=== PATIENT | female | born 2000 | race Caucasian/White ===

== ENCOUNTER → 2019-10-31 10:54 | Outpatient (BNVA) | payer MEDICAID, SELFPAY | PROVIDERS: Family Provider Family Medicine; PCP Family Medicine; Visit Provider Obstetrics & Gynecology | DX: Z01.89 Encounter for other specified special examinations (principal) ==

== ENCOUNTER → 2019-11-02 14:27 | Outpatient (BNVA) | payer MEDICAID, SELFPAY | PROVIDERS: Family Provider Family Medicine; PCP Family Medicine; Visit Provider Obstetrics & Gynecology | DX: Z30.017 Encounter for initial prescription of implantable subdermal contraceptive (principal) | CPT/HCPCS: 81025 ==

== ENCOUNTER 2019-12-08 12:59 | Outpatient (CLI) | payer MEDICAID, SELFPAY ==
--- NOTE | 2019-12-08 13:02 | US_ITS ---
WS: [id number] ULTRASOUND RIGHT BREAST HISTORY: FIBROADENOMA OF RIGHT BREAST COMPARISON: 03/10/2019 and 02/22/2019 TECHNIQUE: 2-D and Doppler. There is a very large well-circumscribed mass of mixed echogenicity in the RIGHT breast at 4:00. No i ncrease in size since the prior study. Mass measures 2.3 x 2.2 x 2.2 cm. Prior biopsy demonstrated fi broadenoma. US/US breast BI limited* [id number] IMPRESSION: BI-RADS: 2-Benign FOLLOW-UP: See Report 1. RIGHT breast mass noted to be a fibroadenoma on a prior biopsy. 2. Consider surgical removal due to large size.
== END 2019-12-08 13:00 | disposition home or self-care (01) ==
LOC: RAD 13:01
PROVIDERS: Family Provider Family Medicine; PCP Family Medicine; Visit Provider Surgery
DX: Z01.89 Encounter for other specified special examinations (principal)
CPT/HCPCS: 76642

== ENCOUNTER 2020-01-08 20:53 | Emergency (ER) | payer OTHER, SELFPAY ==
[2020-01-08 21:06] VITALS: BP 109/67; PULSE 66; RESP 16; TEMP 36.7; O2SAT 99; BMI 20.3
--- NOTE | 2020-01-08 21:10 | XR_ITS ---
WS: [id number] LEFT HAND: 3 VIEW(S) TECHNIQUE: PA, oblique and lateral. HISTORY: trauma; pinky finger COMPARISON: None available. No acute fracture or dislocation. No soft tissue or bone abnormality. XR/XR hand LT min 3V* [id number] IMPRESSION: Normal LEFT hand.
--- NOTE | 2020-01-08 21:11 | W.ED.UPPEXIN ---
HPI - Extremity Injury (Upper) General: Chief Complaint: Extremity Injury, Upper Stated Complaint: Left finger pain Time Seen by Provider: 01/08/20 21:04 History of Present Illness: HPI narrative: Patient got left pinky finger caught between 2 cases of cans a day and it hurt. Contacted work comp when he had a number for company and they told her to follow-up here. complaint: injury to: left and finger Onset (ago): hour(s) Other Extremity Injury: Left: fingers (Pinky) Other injuries: none Handedness: right Place: work Severity: mild Severity scale (1-10): 1 Relieving factors: immobilization Exacerbating factors: movement of extremity Context: direct blow Associated symptoms: Reports no associated symptoms Review of Systems Const: Denies: fever, chills or body aches Eyes: Denies: change in vision or blurry vision ENMT: Denies: throat pain or nasal congestion Card: Denies: chest pain or shortness of breath on exertion Resp: Denies: shortness of breath, productive cough or non-productive cough GI: Denies: abdominal pain, nausea or vomiting Musc: Reports: extremity pain (End of left pinky finger caught between 2 cases a chance today) Skin/Breast: Denies: rash Neuro: Denies: headache Psych: Denies: anxiety or depression Eduardo/Lymph: Denies: easy bruising PFS ED PFSH: Medical History (Updated 11/08/19 @ 13:20 by Josh Garber MD) Fibroadenoma of right breast 4 cm mobile mass at 4:00 position of right breast at edge of areola. Bx performed - fibroadenoma. depression On 10/10/2019, reported worsening depression symptoms in timeframe. Started on fluoxetine 20 mg daily Surgical History (Updated 11/08/19 @ 13:15 by Josh Garber MD) History of dental surgery (~2014) Social History (Updated 11/08/19 @ 13:17 by Josh Garber MD) Smoking and tobacco status: never smoked Quit status (tobacco): has quit using tobacco Year quit tobacco: 04/2018 Alcohol intake: never Adopted: Yes Physical Exam Const: COMMON NORMALS: no apparent distress Extremity: LEFT UPPER EXTREMITY: Yes hand & digits (Redness with mild swelling to the left pinky finger D distal aspect of the phalanx has good range of motion good neurovascular status) Psych: COMMON NORMALS: mental status grossly normal Discharge Plan Discharge Prescriptions: No Action lidocaine-epinephrine (PF) 2 %-1:200,000 solution 3 ml Infiltration ONCE Qty: 1 RF: 0 povidone-iodine [Betadine Swabsticks] 10 % swab 1 applic topical ONCE Qty: 1 RF: 0 fluoxetine 20 mg capsule 20 mg PO QDAY Qty: 30 RF: 12 Coding Level of Care Code ED Embroidery Cutter for Nicole Kelly
[2020-01-08 21:25] VITALS: PULSE 67
[2020-01-08 21:51] VITALS: BP 121/66; PULSE 66; RESP 18; O2SAT 99
== END 2020-01-08 21:52 | disposition home or self-care (01) ==
LOC: ER 01-09 02:13
PROVIDERS: Emergency Provider Nurse Practitioner Family; Family Provider Family Medicine; PCP Family Medicine
DX: M79.645 Pain in left finger(s) (principal)
CPT/HCPCS: 12345; 73130; 99281; 99282

== ENCOUNTER 2021-02-25 22:24 | Emergency (ER) | payer MEDICAID, SELFPAY ==
[2021-02-25 22:28] VITALS: BP 116/70; PULSE 106; RESP 18; TEMP 36.6; O2SAT 99; BMI 19.1
--- NOTE | 2021-02-25 22:39 | W.ED.NAVMDI ---
HPI - Nausea/Vomiting/Diarrhea General: Chief complaint: Nausea/Vomiting/Diarrhea Stated complaint: N/V/D X 2 DAYS, FEVER Time Seen by Provider: 02/25/21 22:26 History of Present Illness: HPI Narrative: Patient is a 20-year-old female comes to the ED with nausea/vomiting and fever. Patient says symptoms started proximately 4 days ago on . She says she has vomited 3 times since start of symptoms. She has some generalized abdominal tenderness that started after vomiting. She has felt nauseous but has only been able to keep down some chicken noodle soup. She reports feeling weak as well having body aches. Denies any cough, sore throat, shortness of breath, diarrhea, constipation, dysuria or hematuria. Associated nausea: Yes Associated symtoms: Reports nausea; Denies change in vision, chest pain, dysuria, fatigue, headache(s) or palpitations Review of Systems Const: Reports: fever(s) and body aches; Denies: chills or fatigue Eyes: Denies: change in vision or eye discomfort ENMT: Denies: throat pain, odynophagia, nasal discharge or nasal congestion Card: Denies: chest pain, palpitations, edema, swelling of feet/ankles, dyspnea on exertion or orthopnea Resp: Denies: dyspnea, productive cough or non-productive cough GI: Reports: nausea and vomiting; Denies: abdominal pain, diarrhea, constipation or hematochezia : Reports: flank pain; Denies: dysuria or hematuria Musc: Denies: neck pain, back pain or extremity swelling Skin/Breast: Denies: rash or new lesions Neuro: Denies: headache(s), numbness in extremities or weakness in extremities PFSH ED PFSH: Medical History Fibroadenoma of right breast 4 cm mobile mass at 4:00 position of right breast at edge of areola. Bx performed - fibroadenoma. depression On 10/10/2019, reported worsening depression symptoms in timeframe. Started on fluoxetine 20 mg daily Surgical History History of dental surgery (~2014) Family History Other Adopted Social History Smoking and tobacco status: never smoked Quit status (tobacco): has quit using tobacco Year quit tobacco: 04/2018 Alcohol intake: never Adopted: Yes Physical Exam Narrative: EXAM NARRATIVE: Patient is a 20-year-old female who appears nontoxic and in no acute distress upon exam. Const: COMMON NORMALS: no acute distress, patient oriented x3 and alert GENERAL APPEARANCE: cooperative and comfortable HENMT: COMMON NORMALS: normocephalic HEAD & SCALP: normocephalic MOUTH: Normal oral and palatal mucosa present THROAT: posterior oropharynx normal and uvula midline Neck/C-Spine: COMMON NORMALS: supple GENERAL: Yes normal visual inspection Resp: COMMON NORMALS: normal respiratory effort, No retractions, No use of accessory muscles and clear to auscultation bilaterally AUSCULTATION: clear to auscultation bilaterally Cardio: COMMON NORMALS: regular rate, regular rhythm, S1 normal heart sound present, S2 normal heart sound present, No gallops present (Cardio), No clicks present (Cardio), No murmurs present (Cardio) and Peripheral pulses 2+ throughout RATE: regular rate RHYTHM: regular rhythm HEART SOUNDS: S1 normal heart sound present and S2 normal heart sound present PERIPHERAL PULSES: Peripheral pulses 2+ throughout GI: COMMON NORMALS: Normal to inspection, nondistended, normoactive bowel sounds present, Soft to palpation, non-tender and no masses PALPATION: Yes Soft to palpation : BLADDER/KIDNEY EXAM: Yes CVA tenderness on the left Back/Pelvis: GENERAL BACK: Yes CVA tenderness Extremity: COMMON NORMALS: normal to inspection Neuro: COMMON NORMALS: patient oriented x3 and moves all extremities SENSORIUM/ORIENTATION: Yes alert Skin: GENERAL SKIN EXAM: dry skin Course Vital Signs: Vital signs: Vital Signs Temperature 97.9 F 02/25/21 23:33 Pulse Rate 74 02/26/21 00:19 Respiratory Rate 16 02/26/21 00:19 Blood Pressure 104/60 02/26/21 00:19 Pulse Oximetry 97 02/26/21 00:19 MDM - Nausea/Vomiting/Diarrhea MDM Narrative: Medical decision making narrative: Patient is a 20-year-old female comes to the ED with nausea, vomiting, fever. Symptoms started about 4 days ago. Upon exam patient appears nontoxic and is in no acute distress or pain. She does have some CVA tenderness on the left side but no other significant exam findings. CBC and CMP were unremarkable. hCG negative. UA showed signs of UTI. UA findings and exam findings suggestive of pyelonephritis. Patient was given IV fluids, Zofran and Rocephin while here in the ED. Patient was discharged home and diagnosed with pyelonephritis. She was sent home with a prescription for ciprofloxacin and Zofran for nausea. Return to ED precautions given. Follow-up with PCP in 7 to 10 days for reevaluation. Patient understood and agreed with plan. Lab Data: Attestation: I reviewed the patient's lab results. Labs: Lab Results 02/25/21 02/25/21 02/25/21 Range/Units 22:40 22:40 22:40 WBC 8.8 (4.0-10.0) 10^3/ uL RBC 4.30 (4.1-5.3) 10^6/u L Hgb 13.0 (11.5-15.3) g/dL Hct 38.9 (37.0-47.0) % MCV 90.5 (81-99) fL MCH 30.2 (28.0-34.0) pg MCHC 33.4 (30.0-36.0) g/dL RDW 11.9 L (12.1-15.1) % Plt Count 181 (130-400) 10^3/c mm MPV 9.9 (7.4-10.4) fL Neut % (Auto) 89.8 % Lymph % (Auto) 5.0 % Hidalgo % (Auto) 4.7 % Eos % (Auto) 0.0 % Baso % (Auto) 0.3 % Neut # (Auto) 7.86 H (1.8-7.7) 10^3/u L Lymph # (Auto) 0.4 L (0.8-4.8) 10^3/u L Hidalgo # (Auto) 0.4 (0.2-0.9) 10^3/u L Eos # (Auto) 0.0 (0.0-0.8) 10^3/u L Baso # (Auto) 0.0 (0.0-0.1) 10^3/u L Nucleated RBC % (a uto) 0 % Nucleated RBCs # 0.0 /100WBC Sodium 137 (136-145) mmol/L Potassium 3.6 (3.5-5.1) mmol/L Chloride 102 (98-107) mmol/L Carbon Dioxide 23 (22-29) mmol/L Anion Gap 15.6 (5-19) BUN 9 (6-20) mg/dL Creatinine 0.4 L (0.5-0.9) mg/dL GFR Calculation 199.6 H (90-130) mL/min Glucose 116 H (65-115) mg/dL Calculated Osmolal ity 284 L (285-295) mOsm/k g Calcium 8.3 L (8.5-10.5) mg/dL Total Bilirubin 0.7 (0.15-1.2) mg/dL AST 15 (0-32) U/L ALT 14 (0-33) U/L Alkaline Phosphata se 59 (35-105) IU/L Total Protein 7.2 (6.6-8.7) g/dL Albumin 4.4 (3.5-5.2) g/dL Globulin 2.8 (1.3-4.6) g/dL Lipase 14 (13-60) U/L HCG, Qual Negative (Negative) Urine Color (Yellow) Urine Appearance (CLEAR) Urine pH (5-7) Ur Specific Gravit y (1.005-1.030) Urine Protein (Negative) Urine Glucose (UA) (Normal) Urine Ketones (Negative) Urine Blood (Negative) Urine Nitrate (Negative) Urine Bilirubin (Negative) Urine Urobilinogen (Negative) mg/dL Ur Leukocyte Erin ase (Negative) Urine RBC (0-2) /hpf Urine WBC (0-5) /hpf Ur Squamous Epith Cells (0-5) /hpf Amorphous Sediment Urine Bacteria (NONE) /hpf Urine Mucus /hpf // Range/Units Unknown WBC (4.0-10.0) 10^3/ uL RBC (4.1-5.3) 10^6/u L Hgb (11.5-15.3) g/dL Hct (37.0-47.0) % MCV (81-99) fL MCH (28.0-34.0) pg MCHC (30.0-36.0) g/dL RDW (12.1-15.1) % Plt Count (130-400) 10^3/c mm MPV (7.4-10.4) fL Neut % (Auto) % Lymph % (Auto) % Hidalgo % (Auto) % Eos % (Auto) % Baso % (Auto) % Neut # (Auto) (1.8-7.7) 10^3/u L Lymph # (Auto) (0.8-4.8) 10^3/u L Hidalgo # (Auto) (0.2-0.9) 10^3/u L Eos # (Auto) (0.0-0.8) 10^3/u L Baso # (Auto) (0.0-0.1) 10^3/u L Nucleated RBC % (a uto) % Nucleated RBCs # /100WBC Sodium (136-145) mmol/L Potassium (3.5-5.1) mmol/L Chloride (98-107) mmol/L Carbon Dioxide (22-29) mmol/L Anion Gap (5-19) BUN (6-20) mg/dL Creatinine (0.5-0.9) mg/dL GFR Calculation (90-130) mL/min Glucose (65-115) mg/dL Calculated Osmolal ity (285-295) mOsm/k g Calcium (8.5-10.5) mg/dL Total Bilirubin (0.15-1.2) mg/dL AST (0-32) U/L ALT (0-33) U/L Alkaline Phosphata se (35-105) IU/L Total Protein (6.6-8.7) g/dL Albumin (3.5-5.2) g/dL Globulin (1.3-4.6) g/dL Lipase (13-60) U/L HCG, Qual (Negative) Urine Color Yellow (Yellow) Urine Appearance Cloudy (CLEAR) Urine pH 6.5 (5-7) Ur Specific Gravit y 1.020 (1.005-1.030) Urine Protein Trace (Negative) Urine Glucose (UA) Norm (Normal) Urine Ketones 2+ H (Negative) Urine Blood 3+ H (Negative) Urine Nitrate Positive H (Negative) Urine Bilirubin 1+ H (Negative) Urine Urobilinogen 1 H (Negative) mg/dL Ur Leukocyte Erin ase 2+ H (Negative) Urine RBC 10-15 H (0-2) /hpf Urine WBC 25-40 H (0-5) /hpf Ur Squamous Epith Cells 25-40 H (0-5) /hpf Amorphous Sediment Not Reportable Urine Bacteria 2+ H (NONE) /hpf Urine Mucus 2+ /hpf Discharge Plan Discharge Patient Disposition: Home Clinical Impression: Pyelonephritis Condition: Stable Prescriptions: New ciprofloxacin HCl 500 mg tablet 500 mg PO BID 7 Days Qty: 14 RF: 0 Zofran 4 mg tablet 4 mg PO Q8H PRN (Reason: nausea and vomiting) Qty: 12 RF: 0 No Action lidocaine-epinephrine (PF) 2 %-1:200,000 solution 3 ml Infiltration ONCE Qty: 1 RF: 0 povidone-iodine [Betadine Swabsticks] 10 % swab 1 applic topical ONCE Qty: 1 RF: 0 fluoxetine 20 mg capsule 20 mg PO QDAY Qty: 30 RF: 12 methylprednisolone [Medrol (Diego)] 4 mg tablets,dose pack See Rx Instructions PO PER PKG DIR Qty: 21 RF: 0 Discharge Orders: Discharge ED (Routine); Ordered 02/26/21 Ordered By: Favio Sullivan Referrals: Gladys Talbot MD [Primary Care Provider] - Discharge Diet: Regular Discharge Activity: Increase activity as tolerated Patient Instructions: Pyelonephritis Activity Restrictions/Additional Instructions: Follow-up with medical provider as directed in 7 to 10 days for reevaluation. Take medications as prescribed. Drink plenty of fluids and stay hydrated. Return to the ER or your medical provider if condition worsens. Please read and understand discharge instructions. Thank you for choosing [facility] for your healthcare needs today. Please realize this is an emergency room and that we are providing you with a medical screening exam and this may not be complete and all inclusive of all the testing and or work up that you may need to determine your ailment or severity of your illness. It is very important that you follow up as instructed or that you return to the Emergency Department should you have concerns or if your condition changes or worsens in any way. Coding Level of Care Code ED Photocomposition Keyboard Operator for Nicole Kelly Exam Comprehensive
[2021-02-25] MEDS: ondansetron 2 mg/ML SDV 2 mL 4 MG IVP (22:44)
[2021-02-25 22:46] LABS: Basophils % 0.3 %; Hematocrit 38.9 % (37.0-47.0); Lymphocytes # 0.4 10^3/uL (0.8-4.8); Mean Corpuscular HGB Conc 33.4 g/dL (30.0-36.0); Mean Corpuscular Hemoglobin 30.2 pg (28.0-34.0); Mean Corpuscular Volume 90.5 fL (81-99); Mean Platelet Volume 9.9 fL (7.4-10.4); Monocytes # 0.4 10^3/uL (0.2-0.9); Monocytes % 4.7 %; Neutrophils # 7.86 10^3/uL (1.8-7.7); Neutrophils % 89.8 %; Nucleated Red Blood Cells % 0 %; Platelet Count 181 10^3/cmm (130-400); Red Cell Distribution Width 11.9 % (12.1-15.1); White Blood Count 8.8 10^3/uL (4.0-10.0)
[2021-02-25] MEDS: sodium chloride 0.9% 1,000 ML 999 ML IV (22:51)
[2021-02-25 22:56] LABS: HCG, Serum Qual Negative (Negative)
[2021-02-25 23:04] LABS: Alanine Aminotransferase 14 U/L (0-33); Albumin Level 4.4 g/dL (3.5-5.2); Alkaline Phosphatase 59 IU/L (35-105); Anion Gap 15.6 (5-19); Aspartate Amino Transferase 15 U/L (0-32); Blood Urea Nitrogen 9 mg/dL (6-20); Calcium 8.3 mg/dL (8.5-10.5); Carbon Dioxide 23 mmol/L (22-29); Chloride 102 mmol/L (98-107); Globulin 2.8 g/dL (1.3-4.6); Glomerular Filtration Rate 199.6 mL/min (90-130); Glucose 116 mg/dL (65-115); Lipase 14 U/L (13-60); Osmolality Calculated 284 mOsm/kg (285-295); Potassium 3.6 mmol/L (3.5-5.1); Sodium 137 mmol/L (136-145); Total Bilirubin 0.7 mg/dL (0.15-1.2); Total Protein 7.2 g/dL (6.6-8.7)
[2021-02-25 23:08] LABS: Protein Urine Trace (Negative); Urine Appearance Cloudy (CLEAR); Urine Color Yellow (Yellow); pH Urine 6.5 (5-7)
[2021-02-25 23:09] LABS: Bacteria Urine 2+ /hpf; Bilirubin Urine 1+ (Negative); Blood Urine 3+ (Negative); Glucose Urine UA Norm (Normal); Ketones Urine 2+ (Negative); Leukocyte Esterase Urine 2+ (Negative); Nitrate Urine Positive (Negative); Squamous Epithelial Cell Urine 25-40 /hpf (0-5); Urobilinogen Urine 1 mg/dL (Negative); WBC Urine 25-40 /hpf (0-5)
[2021-02-25 23:10] LABS: Add Urine Culture? No; Mucus Urine 2+ /hpf
[2021-02-25 23:33] VITALS: BP 96/73; RESP 18; TEMP 36.6; O2SAT 99
[2021-02-25] MEDS: cefTRIAXone 1,000 MG in sodium chloride 0.9% (plus) 50 ML 100 MG IV (23:33)
[2021-02-26 00:19] VITALS: BP 104/60; PULSE 74; RESP 16; O2SAT 97
== END 2021-02-26 00:21 | disposition home or self-care (01) ==
PROVIDERS: Emergency Provider Physician Assistant; PCP Family Medicine
DX: N12 Tubulo-interstitial nephritis, not specified as acute or chronic (principal); Z87.891 Personal history of nicotine dependence
CPT/HCPCS: 80053; 81001; 83690; 84703; 85025; 96365; 96375; 99283; J0696; J2405; J7030

== ENCOUNTER → 2021-03-21 15:33 | Outpatient (BNVA) | payer MEDICAID, SELFPAY | PROVIDERS: PCP Family Medicine; Visit Provider Surgery | DX: N63.0 Unspecified lump in unspecified breast (principal); Z20.822 Contact with and (suspected) exposure to COVID-19 | CPT/HCPCS: 87635 ==

== ENCOUNTER 2021-03-26 05:46 | Day surgery (SDC) | payer MEDICAID, SELFPAY ==
[2021-03-25 13:34] VITALS: BMI 19.1
[2021-03-26 06:13] VITALS: BP 133/69; PULSE 62; RESP 18; TEMP 37.2; O2SAT 100
--- NOTE | 2021-03-26 06:28 | W.PM.OPSUD ---
Surgery/Procedure H&P Update DATE OF PROCEDURE: March 26, 2021 DATE H&P PERFORMED: 03/14/21 H&P UPDATE INFORMATION: I have reviewed H&P completed within last 30 days, I have examined patient prior to procedure and No changes to prior documentation PREOP DIAGNOSIS: Right breast lump PRIMARY INDICATION FOR PROCEDURE: The same PLANNED PROCEDURE: Operation Date: 03/26/21 07:00 Proposed Procedures p Excsion of right breast mass 42607 N63.0(Right) - Elliott Fishman MD
[2021-03-26] MEDS: sodium chloride 0.9% 1,000 ML 30 ML IV (06:35)
[2021-03-26] MEDS: acetaminophen 1,000 MG/100 ML PIGGYBACK 400 MG IV (06:35)
[2021-03-26 06:56] LABS: OR HCG Qualitative Urine Negative (Negative)
--- NOTE | 2021-03-26 07:03 | P.ANESASSM_ITS ---
Pre-Anesthetic Assessment Pre-Anesthetic Assessment: Height/Weight: Height 1.6 m Weight 48.988 kg Temp Pulse Resp BP Pulse Ox 98.9 F 62 18 133/69 100 03/26/21 06:13 03/26/21 06:13 03/26/21 06:13 03/26/21 06:13 03/26/21 06:13 Preop Diagnosis: Right breast lump Proposed Procedure: Operation Date: 03/26/21 07:00 Proposed Procedures p Excsion of right breast mass 89361 N63.0(Right) - Elliott Fishman MD Was Beta Robert taken within 24 hours: N/A Was Clonidine taken within 24 hours: N/A Last intake: Intake Last Liquid Date 03/25/21 Last Liquid Time 22:00 Last Solid Date 03/25/21 Last Solid Time 18:00 Social: Social History: Tobacco (Vapes) and No alcohol Exam: Pre-Anes Outpt Exam: alert, oriented x 3, clear to auscultation bilate rally and regular rate & rhythm Airway: Submandibular: WNL Cervical ROM: WNL MP: 2 Dentition: Full History/ROS: No significant history except as noted Anesthetic Plan: ASA status: 2 Anesthesia: Choice Risk of > 500 ml blood loss (7ml/kg in children): No Meds/Allergies Current Medications: Current Medications Generic Name Dose Route Start Last Admin Trade Name Freq PRN Reason Stop Dose Admin Sodium Chloride 1,000 mls @ 30 ml s/hr 03/26/21 06:15 03/26/21 06:35 Sodium Chloride 0.9% IV 03/27/21 06:14 30 mls/hr .Q24H LEDA Administration PFSH Anesthesia PFSH: Medical History Fibroadenoma of right breast 4 cm mobile mass at 4:00 position of right breast at edge of areola. Bx performed - fibroadenoma. depression On 10/10/2019, reported worsening depression symptoms in timeframe. Started on fluoxetine 20 mg daily Surgical History History of dental surgery (~2014) Family History Other Adopted Social History Smoking and tobacco status: never smoked Quit status (tobacco): has quit using tobacco Year quit tobacco: 04/2018 Alcohol intake: never Adopted: Yes Lives independently: Yes Household members: children and other Data Anesthesia Other Labs: Laboratory Results - last 48 hr 03/26/21 06:55 Urine HCG, Qual Negative Cardiac Studies: No Data to Display
[2021-03-26] MEDS: lidocaine 2% INJ 20 mL (07:23)
--- NOTE | 2021-03-26 07:56 | PM.OP ---
Operative Report Date of procedure: March 26, 2021 Pre-op Diagnosis: Right breast lump Post-op diagnosis: same Post-op Diagnosis: The same 3 x 4 cm right breast mass likely fibroadenoma Procedure Done: Excision of right breast mass Specimens removed/disposition: Right breast mass 3 x 4 cm with short sutures marked superior and long sutures marked lateral Surgeon: Elliott Fishman Anesthesia: General (LMA operator supply Toni) Estimated blood loss (mL): 10 Condition: stable Disposition: same day Brief History: Symptomatic right breast mass. Full H&P and informed consent per chart. Procedure: After identifying the patient holding area, the right breast was marked before the procedure by myself the presence of female nursing staff rosemary Valenzuela, patient was then taken to the operative suite, was placed in supine position, intubated by anesthesia, prophylactic IV antibiotics were given per protocol, right arm was tucked to her body, prep and drape of the right pectoralis region was done under the usual sterile technique. Timeout was done verifying the patient's name/date of /planned procedure and destination after the procedure, all were in agreement. After palpation of the breast lump,Lidocaine 2% was injected at the site of the incision I did add circumferential incision on top of the mass coinciding with nipple areolar complex interface with the skin between 3 and 6:00 o'clock. I was able to dissect using the Bovie cautery at good margin of normal breast tissue surrounding the mass, and appropriate orientation was done for the breast mass in the form of, short superior sutures, long lateral sutures, and the specimen was taken out and passed to the circulating nurse for permanent pathology. Thorough irrigation of the cavity was done and hemostasis, followed by deep dermal closure by 2-0 Vicryl then 4-0 Vicryl, then 4-0 Monocryl for skin closure, followed by Mastisol and Steri-Strips.Followed by pressure dressing fluffs and sports bra. Patient tolerated the procedure well, count of instruments, needles and sponges were completed at the end of the procedure.And then patient was taken to the recovery area in stable condition after extubation. I Was present for the whole entire procedure
[2021-03-26 08:12] VITALS: BP 116/77; PULSE 106; RESP 17; TEMP 36.5; O2SAT 100
[2021-03-26 08:16] VITALS: BP 124/74; PULSE 112; RESP 19; O2SAT 100
[2021-03-26 08:20] VITALS: BP 124/73; PULSE 107; RESP 18; TEMP 36.5; O2SAT 100
[2021-03-26 08:22] VITALS: BP 121/91; PULSE 107; RESP 19; TEMP 36.5; O2SAT 100
[2021-03-26] MEDS: HYDROcodone-acetaminophen 5-325 mg Tablet 1 TAB PO (09:00)
--- NOTE | 2021-03-26 11:36 | ANE.PACU2 ---
Inpatient post-anesthesia follow up: Airway intact: Yes Vital signs: Temperature 97.7 F Pulse Rate 107 Respiratory Rate 19 Blood Pressure 121/91 Pulse Oximetry 100 Oxygen Delivery Me thod Room Air Oxygen Flow Rate Fraction of Inspir ed Oxygen Hydration adequate: Yes Nausea and vomiting: No Pain level: 1 Mental status: Baseline
== END 2021-03-26 09:26 | disposition home or self-care (01) ==
PROVIDERS: PCP Family Medicine; Visit Provider Surgery
PROC: (CPT 19120; principal; 2021-03-26 07:00)
DX: N63.10 Unspecified lump in the right breast, unspecified quadrant (principal); F17.290 Nicotine dependence, other tobacco product, uncomplicated
CPT/HCPCS: 19120; 81025; 84703; 88305; 96365; J0690; J1100; J1885; J2405; J2704; J3010; J3490; J7030

== ENCOUNTER 2021-07-05 11:36 | Day surgery (SDC) | payer MEDICAID, SELFPAY ==
[2021-07-05] VITALS (9 sets, daily range): BP systolic 104–123; BP diastolic 44–69; PULSE 88–126; RESP 15–20; TEMP 36.4–38.5; O2SAT 98–100; BMI 19.3
--- NOTE | 2021-07-05 12:14 | CTR_ITS ---
PROCEDURE INFORMATION: Exam: CT Abdomen And Pelvis With Contrast Exam date and time: 07/05/2021 12:14 PM Age: 21 years old Clinical indication: Abdominal pain/lower abdominal cramping with nausea and vomiting. TECHNIQUE: Imaging protocol: Computed tomography of the abdomen and pelvis with contrast. Radiation optimization: All CT scans at this facility use at least one of these dose optimization techniques: automated exposure control; mA and/or kV adjustment per patient size (includes targeted exams where dose is matched to clinical indication); or iterative reconstruction. Contrast material: OMNI 300; Contrast volume: 75 ml; Contrast route: INTRAVENOUS (IV); COMPARISON: US BPP w/o NST [id number] 08/24/2019 1:36 PM RADIATION DOSE METRICS: Total DLP (mGy-cm): 781.78 FINDINGS: Lungs: The lung bases are unremarkable. No pericardial effusion. No hiatal hernia. Liver: The liver is unremarkable. Gallbladder and bile ducts: The gallbladder is unremarkable. Pancreas: The pancreas is unremarkable. Spleen: The spleen is unremarkable. Adrenal glands: The adrenal glands are unremarkable. Kidneys and ureters: The kidneys are unremarkable. Stomach and bowel: The stomach and small bowel are unremarkable.. The colon is unremarkable. Appendix: The appendix is thickened measuring up to 1.3 cm. There is periappendiceal edema compatible with acute appendicitis. There is no evidence of perforation or abscess formation. Intraperitoneal space: No free intraperitoneal air. Vasculature: No abdominal aortic aneurysm. Lymph nodes: No retroperitoneal lymphadenopathy. Urinary bladder: The bladder is partially decompressed. Reproductive: Probable tampon in the vaginal canal. Small cysts or follicles in the ovaries. Bones/joints: No acute fracture is seen. CT/CT abdomen pelvis w con* [id number] IMPRESSION: Findings compatible with acute, uncomplicated appendicitis. No perforation. No abscess. Radiation Dose CTDIVOL = (mGy): DLP = 781.78 (mGy-cm)
--- NOTE | 2021-07-05 12:17 | W.ED.ABDPA2 ---
HPI - Abdominal Pain General: Chief Complaint: Abdominal Pain Stated Complaint: Vomiting Time Seen by Provider: 07/05/21 12:10 History of Present Illness: HPI narrative: 21-year-old female presents emergency room with right lower quadrant pain that began yesterday last time she ate was 18 hours ago. She has had bilious vomiting with a low-grade fever. She has mild dysuria as she does not believe that she is . She had a little bit of hemoptysis at home small bits of blood no large amounts. She has not had any bloody stools. No history of nephrolithiasis. MD elicited complaint: abdominal pain Onset (ago): hour(s) Pain Consistency: constant Location: RLQ Severity: severe Quality: cramping Exacerbating factors: eating and movement Relieving factors: nothing Associated Symptoms: Reports fever(s) and poor appetite; Denies anorexia, belching, bloating, change in bowel habits, change in stool character, chills, coffee ground emesis, constipation, GI cramping, diarrhea, dyspepsia, dysuria, excessive flatus, heartburn, hematochezia, hematuria, hematemesis, fecal incontinence, loose stools, melena, nausea, syncope and vomiting Related Data: Date of Last Menstrual Period: 07/01/21 Review of Systems Const: Reports: fever(s); Denies: chills ENMT: Denies: throat pain, ear or mastoid pain, nasal discharge or nasal congestion Card: Denies: syncope Resp: Denies: dyspnea, productive cough or non-productive cough GI: Denies: nausea, vomiting, hematemesis, coffee ground emesis, heartburn, diarrhea, constipation, bloating, GI cramping, belching, excessive flatus, fecal incontinence, change in bowel habits, change in stool character, hematochezia or melena : Denies: dysuria or hematuria Skin/Breast: Denies: rash or pruritus PFSH ED PFSH: Medical History Breast mass, right Fibroadenoma of right breast 4 cm mobile mass at 4:00 position of right breast at edge of areola. Bx performed - fibroadenoma. depression On 10/10/2019, reported worsening depression symptoms in timeframe. Started on fluoxetine 20 mg daily Surgical History History of dental surgery (~2014) Family History Other Adopted Social History Quit status (tobacco): has quit using tobacco Year quit tobacco: 04/2018 Alcohol intake: never Adopted: Yes Lives independently: Yes Household members: children and other Female Reproductive History: Date of last menstrual period: 07/01/21 Physical Exam Const: COMMON NORMALS: no acute distress GENERAL APPEARANCE: cooperative and comfortable ORIENTATION/CONSCIOUSNESS: Yes awake, Yes oriented to person, Yes oriented to place and Yes oriented to time HENMT: COMMON NORMALS: normocephalic, atraumatic and hearing grossly normal bilaterally HEAD & SCALP: normocephalic and atraumatic Neck/C-Spine: COMMON NORMALS: no JVD Resp: COMMON NORMALS: normal respiratory effort, No retractions, No use of accessory muscles and clear to auscultation bilaterally AUSCULTATION: clear to auscultation bilaterally Cardio: COMMON NORMALS: no JVD, regular rate, regular rhythm and No murmurs present (Cardio) RATE: regular rate RHYTHM: regular rhythm GI: PALPATION: Yes Tenderness to palpation present (GI) Details: RLQ and Yes Guarding due to palpation present (GI) in the RLQ Extremity: COMMON NORMALS: normal to inspection, capillary refill normal, no clubbing, cyanosis or edema, no calf tenderness and no pedal edema Neuro: SENSORIUM/ORIENTATION: Yes oriented to person, Yes oriented to place and Yes oriented to time Skin: COMMON NORMALS: no rashes or lesions noted GENERAL SKIN EXAM: no rashes or lesions noted Course Vital Signs: Vital signs: Vital Signs Temperature 98.2 F 07/05/21 11:53 Pulse Rate 88 07/05/21 13:02 Respiratory Rate 15 07/05/21 14:37 Blood Pressure 114/69 07/05/21 13:02 Pulse Oximetry 100 07/05/21 13:02 MDM - Abdominal Pain Lab Data: Labs: Lab Results 07/05/21 07/05/21 07/05/21 12:57 12:57 12:57 WBC 17.8 10^3/uL H 10 ^3/uL (4.0-10.0) RBC 4.94 10^6/uL 10^6 /uL (4.1-5.3) Hgb 14.6 g/dL g/dL (11.5-15.3) Hct 44.4 % % (37.0-47.0) MCV 89.9 fl fl (81-99) MCH 29.6 pg pg (28.0-34.0) MCHC 32.9 g/dL g/dL (30.0-36.0) RDW 12.2 % % (12.1-15.1) Plt Count 258 10^3/cmm 10^3 /cmm (130-400) MPV 10.3 fL fL (7.4-10.4) Neut % (Auto) 87.6 % % Lymph % (Auto) 6.6 % % [place] % (Auto) 4.8 % % Eos % (Auto) 0.1 % % Baso % (Auto) 0.3 % % Neut # (Auto) 15.55 10^3/uL H 1 0^3/uL (1.8-7.7) Lymph # (Auto) 1.2 10^3/uL 10^3/ uL (0.8-4.8) [place] # (Auto) 0.9 10^3/uL 10^3/ uL (0.2-0.9) Eos # (Auto) 0.0 10^3/uL 10^3/ uL (0.0-0.8) Baso # (Auto) 0.1 10^3/uL 10^3/ uL (0.0-0.1) Nucleated RBC % (a uto) 0 % % Nucleated RBCs # 0.0 /100WBC /100W BC Sodium 140 mmol/L mmol/L (136-145) Potassium 3.7 mmol/L mmol/L (3.5-5.1) Chloride 102 mmol/L mmol/L (98-107) Carbon Dioxide 22 mmol/L mmol/L (22-29) Anion Gap 19.7 H (5-19) BUN 15 mg/dL mg/dL (6-20) Creatinine 0.4 mg/dL L mg/dL (0.5-0.9) GFR Calculation 197.8 mL/min H mL /min (90-130) Glucose 107 mg/dL mg/dL (65-115) Calculated Osmolal ity 291 mOsm/kg mOsm/ kg (285-295) Calcium 9.5 mg/dL mg/dL (8.5-10.5) Total Bilirubin 0.9 mg/dL mg/dL (0.15-1.2) AST 9 U/L U/L (0-32) ALT 9 U/L U/L (0-33) Alkaline Phosphata se 65 IU/L IU/L (35-105) Total Protein 8.4 g/dL g/dL (6.6-8.7) Albumin 4.9 g/dL g/dL (3.5-5.2) Globulin 3.5 g/dL g/dL (1.3-4.6) Lipase 14 U/L U/L (13-60) HCG, Qual Negative (Negative) Urine Color Urine Appearance Urine pH Ur Specific Grav[place] y Urine Protein Urine Glucose (UA) Urine Ketones Urine Blood Urine Nitrate Urine Bilirubin Urine Urobilinogen Ur Leukocyte Erin ase Amorphous Sediment 07/05/21 14:25 WBC RBC Hgb Hct MCV MCH MCHC RDW Plt Count MPV Neut % (Auto) Lymph % (Auto) [place] % (Auto) Eos % (Auto) Baso % (Auto) Neut # (Auto) Lymph # (Auto) [place] # (Auto) Eos # (Auto) Baso # (Auto) Nucleated RBC % (a uto) Nucleated RBCs # Sodium Potassium Chloride Carbon Dioxide Anion Gap BUN Creatinine GFR Calculation Glucose Calculated Osmolal ity Calcium Total Bilirubin AST ALT Alkaline Phosphata se Total Protein Albumin Globulin Lipase HCG, Qual Urine Color Dark yellow (Yellow) Urine Appearance Hazy A (CLEAR) Urine pH 6.5 (5-7) Ur Specific Gravit y 1.015 (1.005-1.030) Urine Protein Neg (Negative) Urine Glucose (UA) Norm (Normal) Urine Ketones 2+ H (Negative) Urine Blood 3+ H (Negative) Urine Nitrate Positive H (Negative) Urine Bilirubin Neg (Negative) Urine Urobilinogen Norm mg/dL mg/dL (Negative) Ur Leukocyte Erin ase 1+ H (Negative) Amorphous Sediment Not Reportable Coding Level of Care Code ED Division Order Technician for g Robin
[2021-07-05] MEDS: morphine 4 mg/mL SDV 1 mL IVP (12:49)
[2021-07-05] MEDS: ondansetron 2 mg/ML SDV 2 mL 4 MG IVP ×2 (12:49→18:05)
[2021-07-05 13:20] LABS: Basophils # 0.1 10^3/uL (0.0-0.1); Basophils % 0.3 %; Eosinophils % 0.1 %; Hematocrit 44.4 % (37.0-47.0); Hemoglobin 14.6 g/dL (11.5-15.3); Lymphocytes # 1.2 10^3/uL (0.8-4.8); Lymphocytes % 6.6 %; Mean Corpuscular HGB Conc 32.9 g/dL (30.0-36.0); Mean Corpuscular Hemoglobin 29.6 pg (28.0-34.0); Mean Corpuscular Volume 89.9 fl (81-99); Mean Platelet Volume 10.3 fL (7.4-10.4); Monocytes # 0.9 10^3/uL (0.2-0.9); Monocytes % 4.8 %; Neutrophils # 15.55 10^3/uL (1.8-7.7); Neutrophils % 87.6 %; Nucleated Red Blood Cells % 0 %; Platelet Count 258 10^3/cmm (130-400); Red Blood Count 4.94 10^6/uL (4.1-5.3); Red Cell Distribution Width 12.2 % (12.1-15.1); White Blood Count 17.8 10^3/uL (4.0-10.0)
[2021-07-05 13:37] LABS: HCG, Serum Qual Negative (Negative)
[2021-07-05 13:40] LABS: Alanine Aminotransferase 9 U/L (0-33); Albumin Level 4.9 g/dL (3.5-5.2); Alkaline Phosphatase 65 IU/L (35-105); Anion Gap 19.7 (5-19); Aspartate Amino Transferase 9 U/L (0-32); Blood Urea Nitrogen 15 mg/dL (6-20); Calcium 9.5 mg/dL (8.5-10.5); Carbon Dioxide 22 mmol/L (22-29); Chloride 102 mmol/L (98-107); Globulin 3.5 g/dL (1.3-4.6); Glomerular Filtration Rate 197.8 mL/min (90-130); Glucose 107 mg/dL (65-115); Lipase 14 U/L (13-60); Osmolality Calculated 291 mOsm/kg (285-295); Potassium 3.7 mmol/L (3.5-5.1); Sodium 140 mmol/L (136-145); Total Bilirubin 0.9 mg/dL (0.15-1.2); Total Protein 8.4 g/dL (6.6-8.7)
[2021-07-05] MEDS: iohexol 300 mg/mL 100 mL Btl IV (13:48)
[2021-07-05 14:40] LABS: Add Urine Microscopic? YES; Bilirubin Urine Neg (Negative); Blood Urine 3+ (Negative); Glucose Urine UA Norm (Normal); Ketones Urine 2+ (Negative); Leukocyte Esterase Urine 1+ (Negative); Nitrate Urine Positive (Negative); Protein Urine Neg (Negative); Specific Gravity, Urine 1.015 (1.005-1.030); Urine Appearance Hazy (CLEAR); Urine Color Dark Yellow (Yellow); Urobilinogen Urine Norm (Negative); pH Urine 6.5 (5-7)
[2021-07-05] MEDS: piperacillin-tazobactam 3.375 GM in sodium chloride 0.9% (plus) 50 ML IV (14:58)
[2021-07-05] MEDS: promethazine 25 mg/mL SDV 1 mL IM (14:59)
[2021-07-05 15:02] LABS: RBC Urine 0-4 /hpf (0-2)
[2021-07-05 15:03] LABS: Bacteria Urine 4+ /hpf; Transitional Epi Cells Urine 0-4 /hpf
[2021-07-05 15:04] LABS: Add Urine Culture? No; Oval Fat Bodies Urine TRACE /hpf
--- NOTE | 2021-07-05 15:24 | P.HP_ITS ---
Providers/Chief Complaint Admitting Physician: General Surgery Sae Quinones MD Primary Care Provider: Gladys Talbot MD Chief Complaint: Vomiting History of Present Illness Jackelin Avelar is a 21 year old female who developed some right-sided abdominal pain 2 days ago. She said she has vomited probably 6 times since then. The first time she thought she saw some clots of red blood but she has not seen any since. She denies any changes in her bowel habits. She says that she has been having chills but never took her temperature. She came to the emergency room today and a CAT scan showed changes consistent with acute appendicitis. Review of Systems General: Reports: 10 or more systems reviewed and unremarkable except in HPI and below Const: Reports: chills GI: Reports: abdominal pain, nausea and vomiting; Denies: change in bowel habits Medications/Allergies Allergies Allergy/AdvReac Type Severity Reaction Status Date / Time No Known Allergies Allergy Verified 05/10/21 14:43 PFSH Acute PFSH: Medical History (Updated 07/05/21 @ 15:27 by Sae Quinones MD) Fibroadenoma of right breast depression Surgical History (Updated 07/05/21 @ 15:25 by Sae Quinones MD) History of dental surgery (~2014) Part of my left jaw was removed History of right breast biopsy Family History Other Adopted Social History Quit status (tobacco): has quit using tobacco Year quit tobacco: 04/2018 Alcohol intake: never Adopted: Yes Lives independently: Yes Household members: children and other Female Reproductive History: Date of last menstrual period: 07/01/21 Vitals/I&O/Wt Last Vital Signs Temp 98.2 F 07/05/21 11:53 Pulse 88 07/05/21 13:02 Resp 15 07/05/21 14:37 BP 114/69 07/05/21 13:02 Pulse Ox 100 07/05/21 13:02 Weight last 48 hrs Weight 109 lb Physical Exam Narrative: EXAM NARRATIVE: The patient was encountered in her room in the emergency department. She seems to be a little bit groggy but answers questions appropriately. The pupils are equal. No carotid bruits are heard. The lungs are clear anteriorly. The heart is regular. The abdomen reveals hypoactive bowel sounds but is soft. Rovsing's sign is equivocal. The patient has impressive tenderness just lateral to McBurney's point in the right lower quadrant. No obvious masses are palpated. The extremities reveal no edema. Neurologically the patient appears to be grossly intact. Data : 07/05/21 12:57 07/05/21 12:57 CT Abd/Pel: Radiologist's impression: CT abdomen/pelvis 07/05/2021 IMPRESSION: Findings compatible with acute, uncomplicated appendicitis. No perforation. No abscess. A&P Assessment and plan (1) Acute appendicitis: CT reviewed. I agree with the assessment of acute appendicitis. The appendix exhibits an enhanced wall and surrounding edema. It appears to be in a retrocecal location. I discussed appendicitis and treatment with the patient. We discussed both medical and surgical methods of management. Both laparoscopic and open techniques of surgery were gone over. Surgical risks of bleeding, infection, internal organ injury, etc. were all discussed. The patient seems to understand and wants to proceed with surgery. I just want it out of there. The patient has been n.p.o. since last night. I am going to make arrangements for an emergent laparoscopic or possibly open appendectomy. Status: Acute Attestations Medical Necessity Statement*: There is a chance the patient may want to try to go home today if it looks like it is reasonable to do so given the intraoperative findings. I am going to leave her in outpatient status for now as a result. Coding Level of Care Code Acute [facility] for [facility] Diagnoses Acute appendicitis K35.80
[2021-07-05] MEDS: lactated ringers 1,000 ML 150 ML IV (15:42)
--- NOTE | 2021-07-05 15:55 | ANES.PREANE2 ---
Pre-Anesthetic Assessment Pre-Anesthetic Assessment: Height/Weight: Height 1.6 m Weight 49.442 kg Temp Pulse Resp BP Pulse Ox 98.2 F 88 15 114/69 100 07/05/21 11:53 07/05/21 13:02 07/05/21 14:37 07/05/21 13:02 07/05/21 13:02 Preop Diagnosis: Right breast lump Proposed Procedure: Operation Date: 07/05/21 16:20 Proposed Procedures p Laparoscopic Appendectomy(Right) - Sae Quinones MD Was Beta Robert taken within 24 hours: N/A Was Clonidine taken within 24 hours: N/A Exam: Pre-Anes Outpt Exam: alert and oriented x 3 Airway: Submandibular: WNL Cervical ROM: WNL MP: 1 Dentition: Full History/ROS: No significant complaints Pulmonary: Pulmonary: None reported CV/HEM: CV/HEM: None reported : : None reported Hepatic: Hepatic: None reported GI: GI: None reported Metabolic: Metabolic: None reported Musc/skel: Musc/skel: None reported Neuropsych: Neuropsych: None reported Anesthetic Plan: ASA status: 1E Anesthesia: General Risk of > 500 ml blood loss (7ml/kg in children): No Meds/Allergies Current Medications: Current Medications Generic Name Dose Route Start Last Admin Trade Name Freq PRN Reason Stop Dose Admin Lactated Ringer's 1,000 mls @ 150 m ls/hr 07/05/21 15:30 07/05/21 15:42 Lactated Ringers IV 150 mls/hr .[id number] LEDA Administration PFSH Anesthesia PFSH: Medical History (Updated 07/05/21 @ 15:27 by Sae Quinones MD) Fibroadenoma of right breast depression Surgical History (Updated 07/05/21 @ 15:25 by Sae Quinones MD) History of dental surgery (~2014) Part of my left jaw was removed History of right breast biopsy Family History Other Adopted Social History Quit status (tobacco): has quit using tobacco Year quit tobacco: 04/2018 Alcohol intake: never Adopted: Yes Lives independently: Yes Household members: children and other Female Reproductive History: Date of last menstrual period: 07/01/21 Data Anesthesia CBC & Chem 7: 07/05/21 12:57 07/05/21 12:57 Other Labs: Laboratory Results - last 48 hr 07/05/21 07/05/21 07/05/21 12:57 12:57 12:57 WBC 17.8 H RBC 4.94 Hgb 14.6 Hct 44.4 MCV 89.9 MCH 29.6 MCHC 32.9 RDW 12.2 Plt Count 258 MPV 10.3 Neut % (Auto) 87.6 Lymph % (Auto) 6.6 [place] % (Auto) 4.8 Eos % (Auto) 0.1 Baso % (Auto) 0.3 Neut # (Auto) 15.55 H Lymph # (Auto) 1.2 [place] # (Auto) 0.9 Eos # (Auto) 0.0 Baso # (Auto) 0.1 Nucleated RBC % (auto) 0 Nucleated RBCs # 0.0 Sodium 140 Potassium 3.7 Chloride 102 Carbon Dioxide 22 Anion Gap 19.7 H BUN 15 Creatinine 0.4 L GFR Calculation 197.8 H Glucose 107 Calculated Osmolality 291 Calcium 9.5 Total Bilirubin 0.9 AST 9 ALT 9 Alkaline Phosphatase 65 Total Protein 8.4 Albumin 4.9 Globulin 3.5 Lipase 14 HCG, Qual Negative Urine Color Urine Appearance Urine pH Ur Specific [place] Urine Protein Urine Glucose (UA) Urine Ketones Urine Blood Urine Nitrate Urine Bilirubin Urine Urobilinogen Ur Leukocyte Esterase Urine RBC Urine WBC Ur Squamous Epith Cells Ur Transition Epith Cell Amorphous Sediment Urine Bacteria Ur Oval Fat Bodies 07/05/21 14:25 WBC RBC Hgb Hct MCV MCH MCHC RDW Plt Count MPV Neut % (Auto) Lymph % (Auto) [place] % (Auto) Eos % (Auto) Baso % (Auto) Neut # (Auto) Lymph # (Auto) [place] # (Auto) Eos # (Auto) Baso # (Auto) Nucleated RBC % (auto) Nucleated RBCs # Sodium Potassium Chloride Carbon Dioxide Anion Gap BUN Creatinine GFR Calculation Glucose Calculated Osmolality Calcium Total Bilirubin AST ALT Alkaline Phosphatase Total Protein Albumin Globulin Lipase HCG, Qual Urine Color Dark yellow Urine Appearance Hazy A Urine pH 6.5 Ur Specific [place] 1.015 Urine Protein Neg Urine Glucose (UA) Norm Urine Ketones 2+ H Urine Blood 3+ H Urine Nitrate Positive H Urine Bilirubin Neg Urine Urobilinogen Norm Ur Leukocyte Esterase 1+ H Urine RBC 0-4 H Urine WBC 10-15 H Ur Squamous Epith Cells 5-10 H Ur Transition Epith Cell 0-4 Amorphous Sediment Not Reportable Urine Bacteria 4+ H Ur Oval Fat Bodies Trace Cardiac Studies: No Data to Display
[2021-07-05 16:02] LABS: HCG Qualitative Urine. Negative (Negative)
[2021-07-05] MEDS: metroNIDAZOLE IV 500 MG/100 ML PREMIX 100 MG IV (16:36)
--- NOTE | 2021-07-05 17:26 | P.OP_ITS ---
Operative Report Date of procedure: July 05, 2021 Pre-op Diagnosis: Acute appendicitis. Post-op diagnosis: same Procedure Done: Laparoscopic appendectomy Specimens removed/disposition: Appendix. Surgeon: Sae Quinones Anesthesia: General Estimated blood loss (mL): 3 Complications: None. Condition: stable Disposition: PACU Procedure: The patient was brought to the Operating Room and was placed in a supine position on the operating room table. General endotracheal anesthesia was induced. The abdomen was prepped and draped in a sterile fashion. A small vertical incision was carried out in the inferior aspect of the umbilicus. Blunt dissection was carried out down to the fascia, which was grasped with a Olga clamp. A stay suture of 0 Vicryl was placed on either side of the midline and the midline fascia was incised. The underlying peritoneum was opened bluntly and the Hannah port was placed directly into the peritoneal cavity and was held in place with the inflatable balloon. The peritoneal cavity was insufflated with carbon dioxide. The laparoscope was used to inspect the peritoneal cavity. No gross abnormalities were initially noted. Two 5-millimeter ports were placed in the left lower quadrant under direct vision. The patient was tilted in a Trendelenburg position and slightly to the left side. A laparoscopic [place] was used to elevate the cecum and the appendix was identified traveling around the right side and becoming partially retroperitoneal. The appendix was freed from its location using blunt dissection and was then elevated. The appendix was dilated throughout its second half and had a small amount of exudate on its surface. No evidence of perforation was present. The mesoappendix was divided using cautery to maintain hemostasis at the base of the appendix. The base of the appendix appeared healthy and was divided using an endoscopic stapler. The appendix was removed from the peritoneal cavity after being placed in a la paroscopic bag. The right lower quadrant and pelvis were irrigated. The staple line on the cecum was identified and appeared to be in good condition. The Hannah port was removed from the umbilical site and the stay sutures of Vicryl were tied to each other at the umbilicus, closing the fascial defect so that it was airtight. A final round of irrigation was carried out in the right lower quadrant and the pelvis. No ongoing problems were seen. The remaining ports were removed from the abdominal wall as the pneumoperitoneum was evacuated. All skin incisions were closed using inverted interrupted sutures of 4-0 Vicryl. Benzoin and Steri-Strips were placed over the incisions and Band- Aids followed. The patient was taken to the Recovery Room in stable condition postoperatively.
[2021-07-05] MEDS: HYDROcodone-acetaminophen 5-325 mg Tablet 1 TAB PO (19:00)
== END 2021-07-05 19:25 | disposition home or self-care (01) ==
LOC: ER 12:10 → OPS 15:41
PROVIDERS: Physician Assistant; Emergency Provider Family Medicine; PCP Family Medicine; Visit Provider Surgery
PROC: 0DTJ4ZZ Resection of Appendix, Percutaneous Endoscopic Approach (ICD-10-PCS; CPT 44970; principal; 2021-07-05 16:00)
DX: K35.80 Unspecified acute appendicitis (principal); Z87.891 Personal history of nicotine dependence
CPT/HCPCS: 44970; 74177; 80053; 81001; 81025; 83690; 84703; 85025; 88304; 96365; 96367; 96372; 96375; 96376; J0330; J0690; J1100; J2270; J2405; J2543; J2550; J2704; J2710; J3010; J3490; Q9967; S0030

== ENCOUNTER 2021-08-18 05:28 | Emergency (ER) | payer MEDICAID, SELFPAY ==
[2021-08-18 05:36] VITALS: BP 100/65; PULSE 105; RESP 18; TEMP 36.9; O2SAT 98; BMI 19.5
[2021-08-18 05:53] VITALS: BP 100/65; PULSE 105; RESP 18; TEMP 36.9; O2SAT 98
--- NOTE | 2021-08-18 06:21 | XRR_ITS ---
PROCEDURE INFORMATION: Exam: XR Chest Exam date and time: 08/18/2021 6:21 AM Age: 21 years old Clinical indication: Cough TECHNIQUE: Imaging protocol: XR of the chest. Views: 2 views. Total images: 2 COMPARISON: CR Chest 1 [place] [id number] 12/18/2018 1:24 PM FINDINGS: Lungs: Unremarkable. No consolidation. Pleural spaces: Unremarkable. No pleural effusion. No pneumothorax. Heart/Mediastinum: Unremarkable. No cardiomegaly. Bones/joints: [place] right spinal scoliosis. This finding is stable when compared to the prior exam. XR/XR chest 2V* [id number] IMPRESSION: No acute cardiopulmonary process. Radiation Dose CTDIVOL = (mGy): DLP = (mGy-cm)
--- NOTE | 2021-08-18 06:26 | ED_ITS ---
HPI - Nausea/Vomiting/Diarrhea General: Chief complaint: Nausea/Vomiting/Diarrhea Stated complaint: vomiting, cold symptoms Time Seen by Provider: 08/18/21 05:54 Source: patient Mode of arrival: ambulatory Limitations: no limitations History of Present Illness: HPI Narrative: 21 year old female presents to the ER with a chief complaint of nausea and vomiting with a cough that has been ongoing for the past week . Reports other family members also sick with same symptoms. Reports a low grade fever as well. MD elicited complaint: nausea, vomiting and abdominal pain (epigastric ) Onset (ago): day(s) (3) Associated nausea: Yes Associated abdominal pain: Yes Location of pain: Epigastric Radiation: does not radiate Pain consistency: colicky Quality: cramping Exacerbating factors: eating Associated symtoms: Reports cough, fatigue and nausea Review of Systems General: Reports: 10 or more systems reviewed and unremarkable except in HPI and below Const: Reports: fever(s), chills, change in appetite and fatigue Resp: Reports: productive cough GI: Reports: nausea and vomiting PFSH ED PFSH: Medical History Fibroadenoma of right breast depression Surgical History History of dental surgery (~2014) Part of my left jaw was removed History of right breast biopsy Family History Other Adopted Social History Quit status (tobacco): has quit using tobacco Year quit tobacco: 04/2018 Alcohol intake: never Adopted: Yes Lives independently: Yes Household members: children and other Female Reproductive History: Date of last menstrual period: 08/18/21 Physical Exam Const: COMMON NORMALS: no acute distress and patient oriented x3 HENMT: COMMON NORMALS: normocephalic and atraumatic HEAD & SCALP: normocephalic and atraumatic Eye: COMMON NORMALS: Equal, round and reactive pupils present and EOMs intact bilaterally PUPIL: Yes Equal, round and reactive pupils present Neck/C-Spine: COMMON NORMALS: full ROM, supple and no JVD Lymph: LYMPHATIC: no lymphadenopathy noted Chest: COMMONS NORMALS: normal inspection of the chest and normal palpation of entire chest wall Resp: COMMON NORMALS: normal respiratory effort, No retractions and clear to auscultation bilaterally EFFORT & INSPECTION: Yes able to speak in complete sentences and Yes symmetric chest movement AUSCULTATION: clear to auscultation bilaterally Cardio: COMMON NORMALS: no JVD, regular rate and regular rhythm RATE: regular rate RHYTHM: regular rhythm GI: COMMON NORMALS: Normal to inspection, nondistended, normoactive bowel sounds present, Soft to palpation and no masses; negative for non-tender (tenderness noted to the Epigastric region ) INSPECTION: Yes normal to inspection PALPATION: Yes Soft to palpation RECTAL EXAM: deferred : COMMON NORMALS: Yes no CVA tenderness BLADDER/KIDNEY EXAM: Yes no CVA tenderness Back/Pelvis: COMMON NORMALS: no CVA tenderness Extremity: COMMON NORMALS: normal to inspection and full ROM Neuro: COMMON NORMALS: patient oriented x3, CN's II-XII intact bilaterally, moves all extremities and no focal motor deficits Psych: COMMON NORMALS: mental status grossly normal, Normal thought process present, cooperative and normal affect THOUGHT PROCESS: Normal thought process present Skin: COMMON NORMALS: no rashes or lesions noted GENERAL SKIN EXAM: no rashes or lesions noted Course ED course: due to the patients symptoms and condition Iv was established IVF given for hydration with zofran provided for her vomiting . Vital Signs: Vital signs: Vital Signs Temperature 98.4 F 08/18/21 05:53 Pulse Rate 105 H 08/18/21 05:53 Respiratory Rate 18 08/18/21 05:53 Blood Pressure 100/65 08/18/21 05:53 Pulse Oximetry 98 08/18/21 05:53 MDM - Nausea/Vomiting/Diarrhea Lab Data: Labs: Lab Results 08/18/21 08/18/21 08/18/21 06:40 06:40 07:30 WBC 10.5 10^3/uL H 10 ^3/uL (4.0-10.0) RBC 4.62 10^6/uL 10^6 /uL (4.1-5.3) Hgb 13.7 g/dL g/dL (11.5-15.3) Hct 41.6 % % (37.0-47.0) MCV 90.0 fl fl (81-99) MCH 29.7 pg pg (28.0-34.0) MCHC 32.9 g/dL g/dL (30.0-36.0) RDW 12.2 % % (12.1-15.1) Plt Count 217 10^3/cmm 10^3 /cmm (130-400) MPV 10.1 fL fL (7.4-10.4) Neut % (Auto) 80.2 % % Lymph % (Auto) 12.6 % % [place] % (Auto) 6.4 % % Eos % (Auto) 0.2 % % Baso % (Auto) 0.3 % % Neut # (Auto) 8.41 10^3/uL H 10 ^3/uL (1.8-7.7) Lymph # (Auto) 1.3 10^3/uL 10^3/ uL (0.8-4.8) [place] # (Auto) 0.7 10^3/uL 10^3/ uL (0.2-0.9) Eos # (Auto) 0.0 10^3/uL 10^3/ uL (0.0-0.8) Baso # (Auto) 0.0 10^3/uL 10^3/ uL (0.0-0.1) Nucleated RBC % (a uto) 0 % % Nucleated RBCs # 0.0 /100WBC /100W BC Sodium 137 mmol/L mmol/L (136-145) Potassium 3.8 mmol/L mmol/L (3.5-5.1) Chloride 100 mmol/L mmol/L (98-107) Carbon Dioxide 27 mmol/L mmol/L (22-29) Anion Gap 13.8 (5-19) BUN 10 mg/dL mg/dL (6-20) Creatinine 0.4 mg/dL L mg/dL (0.5-0.9) GFR Calculation 197.8 mL/min H mL /min (90-130) Glucose 94 mg/dL mg/dL (65-115) Calculated Osmolal ity 283 mOsm/kg L mOs m/kg (285-295) Calcium 9.0 mg/dL mg/dL (8.5-10.5) Total Bilirubin 0.7 mg/dL mg/dL (0.15-1.2) AST 9 U/L U/L (0-32) ALT 10 U/L U/L (0-33) Alkaline Phosphata se 54 IU/L IU/L (35-105) Total Protein 7.4 g/dL g/dL (6.6-8.7) Albumin 4.3 g/dL g/dL (3.5-5.2) Globulin 3.1 g/dL g/dL (1.3-4.6) Lipase 13 U/L U/L (13-60) HCG, Qual Negative (Negative) Urine Color Urine Appearance Urine pH Ur Specific Gravit y Urine Protein Urine Glucose (UA) Urine Ketones Urine Blood Urine Nitrate Urine Bilirubin Urine Urobilinogen Ur Leukocyte Erin ase Urine RBC Urine WBC Ur Squamous Epith Cells Amorphous Sediment Urine Bacteria 08/18/21 07:30 WBC RBC Hgb Hct MCV MCH MCHC RDW Plt Count MPV Neut % (Auto) Lymph % (Auto) Cotton % (Auto) Eos % (Auto) Baso % (Auto) Neut # (Auto) Lymph # (Auto) Cotton # (Auto) Eos # (Auto) Baso # (Auto) Nucleated RBC % (a uto) Nucleated RBCs # Sodium Potassium Chloride Carbon Dioxide Anion Gap BUN Creatinine GFR Calculation Glucose Calculated Osmolal ity Calcium Total Bilirubin AST ALT Alkaline Phosphata se Total Protein Albumin Globulin Lipase HCG, Qual Urine Color Yellow (Yellow) Urine Appearance Cloudy (CLEAR) Urine pH 5 (5-7) Ur Specific Gravit y 1.020 (1.005-1.030) Urine Protein Trace (Negative) Urine Glucose (UA) Norm (Normal) Urine Ketones 1+ H (Negative) Urine Blood 2+ H (Negative) Urine Nitrate Positive H (Negative) Urine Bilirubin 1+ H (Negative) Urine Urobilinogen 1 mg/dL H mg/dL (Negative) Ur Leukocyte Erin ase 1+ H (Negative) Urine RBC 5-10 /hpf H /hpf (0-2) Urine WBC 10-15 /hpf H /hpf (0-5) Ur Squamous Epith Cells 0-4 /hpf H /hpf (0-5) Amorphous Sediment 2+ /hpf /hpf Urine Bacteria 4+ /hpf H /hpf (NONE) Discharge Plan Discharge Clinical Impression: Dehydration, Nausea & vomiting, UTI (urinary tract infection) Condition: Stable Prescriptions: New sulfamethoxazole-trimethoprim [Bactrim DS] 800-160 mg tablet 1 tab PO BID 7 Days Qty: 14 RF: 0 ondansetron HCl [Zofran] 4 mg tablet 4 mg PO Q6H PRN (Reason: nausea and vomiting) Qty: 15 RF: 0 No Action hydrocodone-acetaminophen 5-325 mg tablet 1 - 2 tab PO Q5H PRN (Reason: pain) Qty: 30 RF: 0 Augmentin 500-125 mg tablet 1 tab PO BID Qty: 15 RF: 0 Discharge Orders: Discharge ED (Routine); Ordered 08/18/21 Ordered By: Vineet Herrmann Referrals: Gladys Talbot MD [Primary Care Provider] - Discharge Diet: Advance as tolerated Discharge Activity: Increase activity as tolerated Patient Instructions: Dehydration (ED), Urinary Tract Infection in Women (ED) Activity Restrictions/Additional Instructions: Please follow-up with your primary care doctor in 2 to 3 days, take medication as prescribed and return in the interim if any of her symptoms persist or worse. Coding Level of Care Code ED Senior Sql Dba for Nicole Fwd Exam Comprehensive
[2021-08-18] MEDS: sodium chloride 0.9% 1,000 ML 999 ML IV (06:39)
[2021-08-18 06:47] LABS: Basophils % 0.3 %; Eosinophils % 0.2 %; Hematocrit 41.6 % (37.0-47.0); Hemoglobin 13.7 g/dL (11.5-15.3); Lymphocytes # 1.3 10^3/uL (0.8-4.8); Lymphocytes % 12.6 %; Mean Corpuscular HGB Conc 32.9 g/dL (30.0-36.0); Mean Corpuscular Hemoglobin 29.7 pg (28.0-34.0); Mean Platelet Volume 10.1 fL (7.4-10.4); Monocytes # 0.7 10^3/uL (0.2-0.9); Monocytes % 6.4 %; Neutrophils # 8.41 10^3/uL (1.8-7.7); Neutrophils % 80.2 %; Nucleated Red Blood Cells % 0 %; Platelet Count 217 10^3/cmm (130-400); Red Blood Count 4.62 10^6/uL (4.1-5.3); Red Cell Distribution Width 12.2 % (12.1-15.1); White Blood Count 10.5 10^3/uL (4.0-10.0)
[2021-08-18 07:05] LABS: Alanine Aminotransferase 10 U/L (0-33); Albumin Level 4.3 g/dL (3.5-5.2); Alkaline Phosphatase 54 IU/L (35-105); Anion Gap 13.8 (5-19); Aspartate Amino Transferase 9 U/L (0-32); Blood Urea Nitrogen 10 mg/dL (6-20); Carbon Dioxide 27 mmol/L (22-29); Chloride 100 mmol/L (98-107); Globulin 3.1 g/dL (1.3-4.6); Glomerular Filtration Rate 197.8 mL/min (90-130); Glucose 94 mg/dL (65-115); Lipase 13 U/L (13-60); Osmolality Calculated 283 mOsm/kg (285-295); Potassium 3.8 mmol/L (3.5-5.1); Sodium 137 mmol/L (136-145); Total Bilirubin 0.7 mg/dL (0.15-1.2); Total Protein 7.4 g/dL (6.6-8.7)
[2021-08-18 07:45] LABS: HCG Qualitative Urine. Negative (Negative)
[2021-08-18 09:12] LABS: Urine Color Yellow (Yellow)
[2021-08-18 09:13] LABS: Add Urine Microscopic? YES; Bilirubin Urine 1+ (Negative); Blood Urine 2+ (Negative); Glucose Urine UA Norm (Normal); Ketones Urine 1+ (Negative); Leukocyte Esterase Urine 1+ (Negative); Nitrate Urine Positive (Negative); Protein Urine Trace (Negative); Urine Appearance Cloudy (CLEAR); Urobilinogen Urine 1 mg/dL (Negative); pH Urine 5 (5-7)
[2021-08-18 09:15] LABS: Add Urine Culture? Yes; Amorphous Sediment Urine 2+ /hpf; Bacteria Urine 4+ /hpf; Squamous Epithelial Cell Urine 0-4 /hpf (0-5)
== END 2021-08-18 09:51 | disposition home or self-care (01) ==
PROVIDERS: Emergency Provider Emergency Medicine; PCP Family Medicine
DX: R11.2 Nausea with vomiting, unspecified (principal); N39.0 Urinary tract infection, site not specified; E86.0 Dehydration; Z87.891 Personal history of nicotine dependence
CPT/HCPCS: 71046; 80053; 81001; 81025; 83690; 85025; 87077; 87086; 87186; 96360; 99283; 99291; J7030

== ENCOUNTER → 2021-09-12 14:41 | Outpatient (BNVA) | payer MEDICAID, SELFPAY | PROVIDERS: PCP Family Medicine; Visit Provider Nurse Practitioner Family | DX: Z20.822 Contact with and (suspected) exposure to COVID-19 (principal) | CPT/HCPCS: 87635 ==

== ENCOUNTER → 2021-11-18 15:24 | Outpatient (BNVA) | payer MEDICAID, SELFPAY | PROVIDERS: PCP Family Medicine; Visit Provider Nurse Practitioner Family | DX: Z20.822 Contact with and (suspected) exposure to COVID-19 (principal); J06.9 Acute upper respiratory infection, unspecified | CPT/HCPCS: 87635 ==

== ENCOUNTER → 2022-12-05 12:20 | Outpatient (BNVA) | payer MEDICAID, SELFPAY | PROVIDERS: PCP Family Medicine; Visit Provider Nurse Practitioner Women's Health | DX: Z12.4 Encounter for screening for malignant neoplasm of cervix (principal); N92.6 Irregular menstruation, unspecified | CPT/HCPCS: 88175 ==

== ENCOUNTER 2023-01-14 18:14 | Emergency (ER) | payer MEDICAID, SELFPAY ==
[2023-01-14 18:39] LABS: Basophils % 0.6 %; Eosinophils # 0.1 10^3/uL (0.0-0.8); Eosinophils % 1.2 %; Hematocrit 37.1 % (37.0-47.0); Hemoglobin 11.7 g/dL (11.5-15.3); Lymphocytes # 2.5 10^3/uL (0.8-4.8); Mean Corpuscular HGB Conc 31.5 g/dL (30.0-36.0); Mean Corpuscular Hemoglobin 26.9 pg (28.0-34.0); Mean Corpuscular Volume 85.3 fl (81-99); Mean Platelet Volume 10.1 fL (7.4-10.4); Monocytes # 0.5 10^3/uL (0.2-0.9); Monocytes % 7.7 %; Neutrophils # 3.74 10^3/uL (1.8-7.7); Neutrophils % 54.4 %; Nucleated Red Blood Cells % 0 %; Platelet Count 243 10^3/cmm (130-400); Red Blood Count 4.35 10^6/uL (4.1-5.3); Red Cell Distribution Width 14.1 % (12.1-15.1); White Blood Count 6.9 10^3/uL (4.0-10.0)
--- NOTE | 2023-01-14 19:40 | W.ED.FEMALGU ---
HPI - Female Genitourinary General: Chief complaint: Vaginal Bleeding Stated complaint: Vaginal Bleeding Time Seen by Provider: 01/14/23 19:09 Source: patient Mode of arrival: ambulatory Limitations: no limitations History of Present Illness: 22-year-old female who states that she started having heavy vaginal bleeding this morning states she went through multiple tampons and had some cramping in her lower abdomen as well. She had been on control over the last 3 years just had it removed in November she states she is concerned she had a home test on last Thursday that was positive she denies any vomiting denies any fevers. Associated symptoms: Deny abdominal pain, headache(s) or nausea Date of Last Menstrual Period: 12/17/22 Review of Systems Const: Denies: fever(s), chills, body aches or change in appetite Eyes: Denies: blurry vision or eye discomfort ENMT: Denies: throat pain or dental pain Card: Denies: chest pain Resp: Denies: dyspnea GI: Denies: abdominal pain, nausea, vomiting or diarrhea : Reports: vaginal bleeding Musc: Denies: neck pain or back pain Skin/Breast: Denies: rash Neuro: Denies: headache(s) Psych: Denies: depression Eduardo/Lymph: Denies: easy bruising All/Imm: Denies: urticaria PFSH ED PFSH: Medical History Fibroadenoma of right breast No pertinent past medical history neghx: htn,dm,thyroid,dvt/pe PCP: [facility] depression Surgical History History of appendectomy History of dental surgery (~2014) Part of my left jaw was removed History of right breast biopsy removed fibroadenoma Family History Other Adopted Female Reproductive History: Date of last menstrual period: 12/17/22 Physical Exam Const: COMMON NORMALS: no acute distress, patient oriented x3 and healthy appearing HENMT: COMMON NORMALS: normocephalic and atraumatic HEAD & SCALP: normocephalic and atraumatic Eye: COMMON NORMALS: Equal, round and reactive pupils present and EOMs intact bilaterally PUPIL: Yes Equal, round and reactive pupils present Neck/C-Spine: COMMON NORMALS: full ROM and supple Chest: COMMONS NORMALS: normal inspection of the chest and normal palpation of entire chest wall Resp: COMMON NORMALS: normal respiratory effort, No retractions, No use of accessory muscles and clear to auscultation bilaterally AUSCULTATION: clear to auscultation bilaterally Cardio: COMMON NORMALS: regular rate, regular rhythm and No murmurs present (Cardio) RATE: regular rate RHYTHM: regular rhythm GI: COMMON NORMALS: Normal to inspection, nondistended, normoactive bowel sounds present, Soft to palpation, non-tender and no masses PALPATION: Yes Soft to palpation Extremity: COMMON NORMALS: normal to inspection and full ROM Neuro: COMMON NORMALS: patient oriented x3, moves all extremities and no focal motor deficits Psych: COMMON NORMALS: mental status grossly normal, Normal thought process present and cooperative THOUGHT PROCESS: Normal thought process present Skin: COMMON NORMALS: no rashes or lesions noted and no wounds GENERAL SKIN EXAM: no rashes or lesions noted MDM - Female Medical Decision Making Patient presents here vaginal bleeding likely some breakthrough bleeding after being on control for 3 years her hemoglobin level here is normal she is not her abdominal exam is benign she is to follow-up with her primary care doctor and return if worsening she understands agrees to plan. Lab Data 01/14/23 18:34 01/14/23 18:34 Laboratory Results WBC 6.9 10^3/uL (4.0-10.0) 01/14/23 18:34 RBC 4.35 10^6/uL (4.1-5.3) 01/14/23 18:34 Hgb 11.7 g/dL (11.5-15.3) 01/14/23 18:34 Hct 37.1 % (37.0-47.0) 01/14/23 18: MCV 85.3 fl (81-99) 01/14/23 18: MCH 26.9 pg (28.0-34.0) L 01/14/23 18: MCHC 31.5 g/dL (30.0-36.0) 01/14/23 18: RDW 14.1 % (12.1-15.1) 01/14/23 18:34 Plt Count 243 10^3/cmm (130-400) 01/14/23 18:34 MPV 10.1 fL (7.4-10.4) 01/14/23 18:34 Neut % (Auto) 54.4 % 01/14/23 18:34 Lymph % (Auto) 36.0 % 01/14/23 18:34 [place] % (Auto) 7.7 % 01/14/23 18:34 Eos % (Auto) 1.2 % 01/14/23 18:34 Baso % (Auto) 0.6 % 01/14/23 18:34 Neut # (Auto) 3.74 10^3/uL (1.8-7.7) 01/14/23 18:34 Lymph # (Auto) 2.5 10^3/uL (0.8-4.8) 01/14/23 18:34 [place] # (Auto) 0.5 10^3/uL (0.2-0.9) 01/14/23 18:34 Eos # (Auto) 0.1 10^3/uL (0.0-0.8) 01/14/23 18:34 Baso # (Auto) 0.0 10^3/uL (0.0-0.1) 01/14/23 18:34 Nucleated RBC % (auto) 0 % 01/14/23 18: Nucleated RBCs # 0.0 /100WBC 01/14/23 18:34 Sodium 137 mmol/L (136-145) 01/14/23 18:34 Potassium 3.7 mmol/L (3.5-5.1) 01/14/23 18:34 Chloride 103 mmol/L (98-107) 01/14/23 18:34 Carbon Dioxide 23 mmol/L (22-29) 01/14/23 18:34 Anion Gap 14.7 (5-19) 01/14/23 18:34 BUN 11 mg/dL (6-20) 01/14/23 18:34 Creatinine 0.3 mg/dL (0.5-0.9) L 01/14/23 18:34 GFR Calculation 273.3 mL/min (90-130) H 01/14/23 18:34 Glucose 88 mg/dL (65-115) 01/14/23 18: Calculated Osmolality 283 mOsm/kg (285-295) L 01/14/23 18:34 Calcium 8.8 mg/dL (8.5-10.5) 01/14/23 18:34 Total Bilirubin 0.3 mg/dL (0.15-1.2) 01/14/23 18:34 AST 11 U/L (0-32) 01/14/23 18:34 ALT 9 U/L (0-33) 01/14/23 18:34 Alkaline Phosphatase 56 U/L (35-105) 01/14/23 18:34 Total Protein 7.3 g/dL (6.6-8.7) 01/14/23 18:34 Albumin 4.7 g/dL (3.5-5.2) 01/14/23 18:34 Globulin 2.6 g/dL (1.3-4.6) 01/14/23 18:34 Ser , Semi-Qnt 1.00 mIU/mL 01/14/23 18:34 Discharge Plan Discharge Patient Disposition: Home Clinical Impression: Dysfunctional uterine bleeding Condition: Stable Prescriptions: No Action lidocaine-epinephrine (PF) 2 %-1:200,000 solution 1 ml SUBCUT ONCE Qty: 20 0RF povidone-iodine [Betadine Swabsticks] 10 % swab 1 applic topical ONCE Qty: 3 0RF No Known Home Medications Discharge Orders: Discharge ED (Routine); Ordered 01/14/23 Ordered By: Edward Lock Referrals: Gladys Talbot MD [Primary Care Provider] - 1-3 days Discharge Diet: Advance as tolerated Discharge Activity: Resume usual activity Patient Instructions: Abnormal (Dysfunctional) Uterine Bleeding (ED) Coding Level of Care Code ED Supervisor [employer] for Nicole Kelly
[2023-01-14 19:45] LABS: Alanine Aminotransferase 9 U/L (0-33); Albumin Level 4.7 g/dL (3.5-5.2); Alkaline Phosphatase 56 U/L (35-105); Anion Gap 14.7 (5-19); Aspartate Amino Transferase 11 U/L (0-32); Blood Urea Nitrogen 11 mg/dL (6-20); Calcium 8.8 mg/dL (8.5-10.5); Carbon Dioxide 23 mmol/L (22-29); Chloride 103 mmol/L (98-107); Globulin 2.6 g/dL (1.3-4.6); Glomerular Filtration Rate 273.3 mL/min (90-130); Glucose 88 mg/dL (65-115); Osmolality Calculated 283 mOsm/kg (285-295); Potassium 3.7 mmol/L (3.5-5.1); Sodium 137 mmol/L (136-145); Total Bilirubin 0.3 mg/dL (0.15-1.2); Total Protein 7.3 g/dL (6.6-8.7)
[2023-01-14 19:56] VITALS: BP 131/78; PULSE 74; RESP 16; O2SAT 100
== END 2023-01-14 19:56 | disposition home or self-care (01) ==
PROVIDERS: Emergency Provider Emergency Medicine; PCP Family Medicine
DX: N93.8 Other specified abnormal uterine and vaginal bleeding (principal)
CPT/HCPCS: 36415; 80053; 84702; 85025; 99283

== ENCOUNTER → 2023-03-13 14:00 | Outpatient (BNVA) | payer MEDICAID, SELFPAY | PROVIDERS: PCP Family Medicine; Visit Provider Nurse Practitioner Women's Health | DX: O20.9 Hemorrhage in early pregnancy, unspecified (principal); Z32.01 Encounter for pregnancy test, result positive | CPT/HCPCS: 81025; 84315; 87077; 87086; 87184; 87491; 87591; 87661 ==

== ENCOUNTER → 2023-03-20 13:49 | Outpatient (BNVA) | payer MEDICAID, SELFPAY | PROVIDERS: PCP Family Medicine; Visit Provider Nurse Practitioner Women's Health | DX: O23.40 Unspecified infection of urinary tract in pregnancy, unspecified trimester (principal); A59.9 Trichomoniasis, unspecified | CPT/HCPCS: 81000 ==

== ENCOUNTER 2023-03-25 14:03 | Outpatient (CLI) | payer MEDICAID, SELFPAY ==
--- NOTE | 2023-03-25 14:45 | US_ITS ---
WS: [id number] ULTRASOUND EARLY TECHNIQUE: Transabdominal sonography of the pelvis was performed. Followed by transvaginal sonography to better evaluate the uterus and ovaries. CLINICAL INFORMATION: Z34.90 - Encounter for supervision of normal , u... LMP: 01/14/2023 Beta hCG: Unknown. COMPARISON: None. FINDINGS: Cervix is long and closed measuring 4.3 cm UTERUS AND GESTATIONAL SAC Intrauterine gestations: Mean gestational sac diameter: 4.7 cm; Estimated gestational age: 10w1d Yolk sac: 0.5 cm. [place] rump length (CRL): 3.3 cm. heart motion: 167 BPM. Subchorionic hemorrhage: Present measuring 1.1 x 1.0 x 2.1 cm Estimated gestational age 10 weeks 1 day. Estimated delivery October 20, 2023 OVARIES Right ovary: Incidental simple RIGHT ovarian cyst measuring 1.1 x 1.2 x 1.3 cm. Otherwise normal RIGH T ovary. Left ovary: Not identified FREE FLUID None. US/US OB <= 14 weeks fetus [id number] IMPRESSION: 1. Single live intrauterine . Cervix is long and closed measuring 4.3 cm 2. cardiac activity visualized. 3. Suspected small subchorionic hemorrhage. Recommend short interval follow-up . 4. No free fluid in the cul-de-sac. 5. Normal RIGHT ovary with small incidental simple cyst measuring 1.3 cm. LEFT ovary not identified. 6. Estimated gestational age; 10w1d
== END 2023-03-25 14:04 | disposition home or self-care (01) ==
PROVIDERS: PCP Family Medicine; Visit Provider Nurse Practitioner Women's Health
DX: Z34.91 Encounter for supervision of normal pregnancy, unspecified, first trimester (principal); Z3A.10 10 weeks gestation of pregnancy
CPT/HCPCS: 76801

== ENCOUNTER → 2023-03-27 15:00 | Outpatient (BNVA) | payer MEDICAID, SELFPAY | PROVIDERS: PCP Family Medicine; Visit Provider Obstetrics & Gynecology | DX: Z34.80 Encounter for supervision of other normal pregnancy, unspecified trimester (principal) | CPT/HCPCS: 80307; 81000; 87077; 87086; 87184 ==

== ENCOUNTER → 2023-04-10 09:40 | Outpatient (BNVA) | payer MEDICAID, SELFPAY | PROVIDERS: PCP Family Medicine; Visit Provider Obstetrics & Gynecology | DX: Z34.80 Encounter for supervision of other normal pregnancy, unspecified trimester (principal) | CPT/HCPCS: 85027; 86592; 86762; 86803; 86850; 86900; 87340; 87806 ==

== ENCOUNTER → 2023-04-24 08:39 | Outpatient (BNVA) | payer MEDICAID, SELFPAY | PROVIDERS: PCP Family Medicine; Visit Provider Obstetrics & Gynecology | DX: O09.90 Supervision of high risk pregnancy, unspecified, unspecified trimester (principal) | CPT/HCPCS: 81000; 87491; 87591 ==

== ENCOUNTER 2023-05-13 18:10 | Emergency (ER) | payer MEDICAID, SELFPAY ==
[2023-05-13 18:27] VITALS: BP 116/65; PULSE 77; RESP 15; TEMP 36.7; O2SAT 100
[2023-05-13 18:51] LABS: Basophils % 0.3 %; Eosinophils % 0.3 %; Hematocrit 34.7 % (37.0-47.0); Hemoglobin 11.5 g/dL (11.5-15.3); Lymphocytes # 1.9 10^3/uL (0.8-4.8); Lymphocytes % 19.1 %; Mean Corpuscular HGB Conc 33.1 g/dL (30.0-36.0); Mean Corpuscular Hemoglobin 28.7 pg (28.0-34.0); Mean Corpuscular Volume 86.5 fl (81-99); Mean Platelet Volume 10.4 fL (7.4-10.4); Monocytes # 0.5 10^3/uL (0.2-0.9); Monocytes % 4.9 %; Neutrophils # 7.34 10^3/uL (1.8-7.7); Neutrophils % 74.8 %; Nucleated Red Blood Cells % 0 %; Platelet Count 171 10^3/cmm (130-400); Red Blood Count 4.01 10^6/uL (4.1-5.3); Red Cell Distribution Width 13.6 % (12.1-15.1); White Blood Count 9.8 10^3/uL (4.0-10.0)
[2023-05-13 19:10] LABS: HCG, Serum Qual Positive (Negative)
[2023-05-13 19:17] LABS: Alanine Aminotransferase 6 U/L (0-33); Albumin Level 3.9 g/dL (3.5-5.2); Alkaline Phosphatase 55 U/L (35-105); Anion Gap 16.6 (5-19); Aspartate Amino Transferase 10 U/L (0-32); Blood Urea Nitrogen 6 mg/dL (6-20); Calcium 8.9 mg/dL (8.5-10.5); Carbon Dioxide 23 mmol/L (22-29); Chloride 100 mmol/L (98-107); Globulin 3.1 g/dL (1.3-4.6); Glomerular Filtration Rate 271.1 mL/min (90-130); Glucose 86 mg/dL (65-115); Lipase 20 U/L (13-60); Osmolality Calculated 279 mOsm/kg (285-295); Potassium 3.6 mmol/L (3.5-5.1); Sodium 136 mmol/L (136-145); Total Bilirubin 0.2 mg/dL (0.15-1.2)
[2023-05-13 21:40] VITALS: BP 108/67; PULSE 66; RESP 16; TEMP 37.2; O2SAT 100
[2023-05-13 23:42] VITALS: BP 122/59; PULSE 60; RESP 14; O2SAT 100
[2023-05-13] MEDS: diphenhydrAMINE 50 mg/mL SDV 1mL IVP (23:52)
[2023-05-13] MEDS: metoclopramide 5 mg/mL SDV 2 mL 10 MG IVP (23:52)
[2023-05-13] MEDS: sodium chloride 0.9% 1,000 ML 999 ML IV (23:52)
[2023-05-13 23:56] LABS: Add Urine Microscopic? YES; Bilirubin Urine Neg (Negative); Blood Urine Neg (Negative); Glucose Urine UA Norm (Normal); Ketones Urine 2+ (Negative); Leukocyte Esterase Urine 2+ (Negative); Nitrate Urine Negative (Negative); Protein Urine Neg (Negative); RBC Urine 0-4 /hpf (0-2); Specific Gravity, Urine 1.015 (1.005-1.030); Urine Color Yellow (Yellow); Urobilinogen Urine Norm (Negative); WBC Urine 25-40 /hpf (0-5); pH Urine 7 (5-7)
[2023-05-13 23:57] LABS: Add Urine Culture? No; Bacteria Urine 3+ /hpf; Squamous Epithelial Cell Urine 15-25 /hpf (0-5)
[2023-05-14 00:02] VITALS: BP 116/69; PULSE 100; RESP 15; O2SAT 100
--- NOTE | 2023-05-14 00:02 | ED_ITS ---
HPI - Headache General: Chief Complaint: Headache Stated Complaint: vomiting Time Seen by Provider: 05/13/23 23:26 Source: patient Mode of arrival: ambulatory Limitations: no limitations History of Present Illness: 23-year-old female is currently 17 weeks states she is nausea vomiting headache over the last day some slight dizziness. She states that she has had vomiting with this she denies any severe headache she denies any fever she has no abdominal pain no vaginal bleeding. Associated symptoms: Deny chest pain, fever(s), nausea, rash or vomiting Review of Systems Const: Denies: fever(s) or chills ENMT: Denies: throat pain or dental pain Card: Denies: chest pain Resp: Denies: dyspnea GI: Denies: abdominal pain, nausea, vomiting or diarrhea : Denies: dysuria Musc: Denies: neck pain or back pain Skin/Breast: Denies: rash Neuro: Reports: headache(s) PFSH ED PFSH: Medical History Fibroadenoma of right breast No pertinent past medical history neghx: htn,dm,thyroid,dvt/pe PCP: [facility] depression Surgical History History of appendectomy History of dental surgery (~2014) Part of my left jaw was removed History of right breast biopsy removed fibroadenoma Family History Other Adopted Course Vital Signs: Vital signs: Vital Signs Temperature 99 F 05/13/23 21:40 Pulse Rate 60 05/13/23 23:42 Respiratory Rate 14 05/13/23 23:42 Blood Pressure 122/59 05/13/23 23:42 Pulse Oximetry 100 05/13/23 23:42 Oxygen Delivery Me thod Room Air 05/13/23 23:42 MDM - Headache Medical Decision Making Patient presents with vomiting presently along with a headache likely from her vomiting she has no signs of meningitis or subarachnoid hemorrhage she feels improved after Reglan Benadryl she does have ketones in her urine likely from dehydration did hydrate her with IV fluids she does have a UTI as well we will prescribe her antibiotics she is to follow-up with PCP and return if worsening. Medical Records I reviewed the patient's medical records. Lab Data I reviewed the patient's lab results. 05/13/23 18:45 05/13/23 18:45 Laboratory Results WBC 9.8 10^3/uL (4.0-10.0) 05/13/23 18:45 RBC 4.01 10^6/uL (4.1-5.3) L 05/13/23 18:45 Hgb 11.5 g/dL (11.5-15.3) 05/13/23 18:45 Hct 34.7 % (37.0-47.0) L 05/13/23 18:45 MCV 86.5 fl (81-99) 05/13/23 18:45 MCH 28.7 pg (28.0-34.0) 05/13/23 18:45 MCHC 33.1 g/dL (30.0-36.0) 05/13/23 18:45 RDW 13.6 % (12.1-15.1) 05/13/23 18:45 Plt Count 171 10^3/cmm (130-400) 05/13/23 18:45 MPV 10.4 fL (7.4-10.4) 05/13/23 18:45 Neut % (Auto) 74.8 % 05/13/23 18:45 Lymph % (Auto) 19.1 % 05/13/23 18:45 [place] % (Auto) 4.9 % 05/13/23 18:45 Eos % (Auto) 0.3 % 05/13/23 18:45 Baso % (Auto) 0.3 % 05/13/23 18:45 Neut # (Auto) 7.34 10^3/uL (1.8-7.7) 05/13/23 18:45 Lymph # (Auto) 1.9 10^3/uL (0.8-4.8) 05/13/23 18:45 [place] # (Auto) 0.5 10^3/uL (0.2-0.9) 05/13/23 18:45 Eos # (Auto) 0.0 10^3/uL (0.0-0.8) 05/13/23 18:45 Baso # (Auto) 0.0 10^3/uL (0.0-0.1) 05/13/23 18:45 Nucleated RBC % (auto) 0 % 05/13/23 18:45 Nucleated RBCs # 0.0 /100WBC 05/13/23 18:45 Sodium 136 mmol/L (136-145) 05/13/23 18:45 Potassium 3.6 mmol/L (3.5-5.1) 05/13/23 18:45 Chloride 100 mmol/L (98-107) 05/13/23 18:45 Carbon Dioxide 23 mmol/L (22-29) 05/13/23 18:45 Anion Gap 16.6 (5-19) 05/13/23 18:45 BUN 6 mg/dL (6-20) 05/13/23 18:45 Creatinine 0.3 mg/dL (0.5-0.9) L 05/13/23 18:45 GFR Calculation 271.1 mL/min (90-130) H 05/13/23 18:45 Glucose 86 mg/dL (65-115) 05/13/23 18:45 Calculated Osmolality 279 mOsm/kg (285-295) L 05/13/23 18:45 Calcium 8.9 mg/dL (8.5-10.5) 05/13/23 18:45 Total Bilirubin 0.2 mg/dL (0.15-1.2) 05/13/23 18:45 AST 10 U/L (0-32) 05/13/23 18:45 ALT 6 U/L (0-33) 05/13/23 18:45 Alkaline Phosphatase 55 U/L (35-105) 05/13/23 18:45 Total Protein 7.0 g/dL (6.6-8.7) 05/13/23 18:45 Albumin 3.9 g/dL (3.5-5.2) 05/13/23 18:45 Globulin 3.1 g/dL (1.3-4.6) 05/13/23 18:45 Lipase 20 U/L (13-60) 05/13/23 18:45 HCG, Qual Positive (Negative) H 05/13/23 18:45 Urine Color Yellow (Yellow) 05/13/23 23:33 Urine Appearance Sl cloudy (CLEAR) A 05/13/23 23:33 Urine pH 7 (5-7) 05/13/23 23:33 Ur Specific [place] 1.015 (1.005-1.030) 05/13/23 23:33 Urine Protein Neg (Negative) 05/13/23 23:33 Urine Glucose (UA) Norm (Normal) 05/13/23 23:33 Urine Ketones 2+ (Negative) H 05/13/23 23:33 Urine Blood Neg (Negative) 05/13/23 23:33 Urine Nitrate Negative (Negative) 05/13/23 23:33 Urine Bilirubin Neg (Negative) 05/13/23 23:33 Urine Urobilinogen Norm mg/dL (Negative) 05/13/23 23:33 Ur Leukocyte Esterase 2+ (Negative) H 05/13/23 23:33 Urine RBC 0-4 /hpf (0-2) H 05/13/23 23:33 Urine WBC 25-40 /hpf (0-5) H 05/13/23 23:33 Ur Squamous Epith Cells 15-25 /hpf (0-5) H 05/13/23 23:33 Amorphous Sediment Not Reportable 05/13/23 23:33 Urine Bacteria 3+ /hpf (NONE) H 05/13/23 23:33 Discharge Plan Discharge Patient Disposition: Home Clinical Impression: Vomiting affecting , Headache, UTI (urinary tract infection) Condition: Stable Prescriptions: New cephalexin 500 mg capsule 500 mg PO TID 7 Days Qty: 21 0RF metoclopramide HCl [Reglan] 10 mg tablet 10 mg PO Q6H PRN (Reason: nausea and vomiting) Qty: 20 0RF No Action polyethylene glycol 3350 [Miralax] 17 gram/dose powder 4 g PO DAILY PRN [place] Complete Tablet,Chewable 2 tab PO DAILY Discharge Orders: Discharge ED (Routine); Ordered 05/14/23 Ordered By: Edward Lock Referrals: Gladys Talbot MD [Primary Care Provider] - 1-3 days Discharge Diet: Advance as tolerated Discharge Activity: Resume usual activity Patient Instructions: Nausea and Vomiting in (ED), General Headache (ED) Coding Level of Care Code ED Wharf Tender Helper for Nancyg Robin
[2023-05-14 00:30] VITALS: BP 100/58; PULSE 81; RESP 16; O2SAT 100
[2023-05-14] MEDS: cefTRIAXone 1,000 MG in sodium chloride 0.9% (plus) 50 ML 100 MG IV (00:31)
[2023-05-14 01:00] VITALS: BP 101/57; PULSE 68; RESP 16; O2SAT 100
[2023-05-14] MEDS: sodium chloride 0.9% 1,000 ML 999 ML IV (01:16)
[2023-05-14 01:21] VITALS: BP 95/58; PULSE 73; RESP 23; O2SAT 100
== END 2023-05-14 01:22 | disposition home or self-care (01) ==
PROVIDERS: Emergency Provider Emergency Medicine; PCP Family Medicine
DX: O21.9 Vomiting of pregnancy, unspecified (principal); O23.42 Unspecified infection of urinary tract in pregnancy, second trimester; N39.0 Urinary tract infection, site not specified; O26.892 Other specified pregnancy related conditions, second trimester; R51.9 Headache, unspecified; Z3A.17 17 weeks gestation of pregnancy
CPT/HCPCS: 36415; 80053; 81001; 83690; 84703; 85025; 96365; 96375; 99284; J0696; J1200; J2765; J7030

== ENCOUNTER 2023-05-29 11:06 | Outpatient (CLI) | payer MEDICAID, SELFPAY ==
--- NOTE | 2023-05-29 11:00 | US_ITS ---
WS: [id number] OB ultrasound, 05/29/2023 Clinical Data: Z34.80 - Encounter for supervision of other normal pregna... Comparison: OB ultrasound, 03/25/2023 Findings: There is a single intrauterine in the breech presentation. The placenta is Anterior and gra de 0. There is a normal amount of amnionic fluid. The heart rate is 147 beats per minute. Measurements of growth and development: BPD: 4.47 cm 19 weeks 4 days HC: 16.90 cm 19 weeks 4 days AC: 14.31 cm 19 weeks 5 days FL: 3.17 cm 19 weeks 6 days The estimated weight is 309 g;, 11 ounces. The estimated gestational age is 19 weeks 5 days with an JANNETTE of approximately 10/18/2023. anatomy show a normal stomach, kidneys, bladder, cord insertion, three-vessel cord, entire spin e, four-chamber heart, upper lip, bilateral upper and lower extremities, profile, LVOT, RVOT, lateral cerebral ventricles, cerebellum and cisterna magna. Male gender is seen. Impression: 1. Single intrauterine in breech presentation. 2. Estimated gestational age 19 weeks 5 days with an JANNETTE of 10/18/2023. 3. heart rate 147 beats per minute.
== END 2023-05-29 11:07 | disposition home or self-care (01) ==
PROVIDERS: PCP Family Medicine; Visit Provider Obstetrics & Gynecology
DX: Z34.82 Encounter for supervision of other normal pregnancy, second trimester (principal)
CPT/HCPCS: 76805

== ENCOUNTER 2023-07-16 10:14 | Emergency (ER) | payer MEDICAID, SELFPAY ==
[2023-07-16 10:26] VITALS: BP 144/81; PULSE 99; RESP 15; TEMP 36.8; O2SAT 97
--- NOTE | 2023-07-16 10:28 | ED_ITS ---
HPI - URI/Sore Throat General: Chief Complaint: Upper Respiratory Infection Stated Complaint: cough Time Seen by Provider: 07/16/23 10:15 Source: patient Mode of arrival: ambulatory Limitations: no limitations History of Present Illness: Patient is a 23-year-old female presents to ED today with a complaint of a cough over the past 2 weeks. Patient states she is not having runny nose or nasal congestion or sinus pain/pressure. No fevers. Has been exposed to someone that was exposed to COVID. She states she is not having any pain in her chest. She states she does feel like it is difficult to take a deep breath. She is approximately 26 weeks . She has not noticed any lower extremity swelling. Patient states when she coughs for long periods of time she feels like her uterus contracts. Symptoms go away after she stops coughing. She states she feels good movement. She is not having any vaginal bleeding, leaking of fluid. MD elicited complaint: cough Onset (ago): week(s) Severity: moderate Description of mucous: clear Able to tolerate fluids by mouth: Yes Exacerbating factors: nothing Relieving factors: nothing Associated symptoms: Reports cough; Deny abdominal pain, chills, chest pain, diarrhea, epistaxis, ear or mastoid pain, fever(s), headache(s), nasal congestion, nausea, sinus pain or vomiting Treatments prior to arrival: other (benadryl) Review of Systems Const: Denies: fever(s), chills, body aches, fatigue or malaise Eyes: Denies: change in vision, blurry vision, photophobia, floaters or seeing flashes ENMT: Denies: throat pain, odynophagia, oral sores, ear or mastoid pain, ear discharge, nasal discharge, nasal congestion, epistaxis or sinus pain Card: Denies: chest pain, palpitations, irregular heart rhythm, edema, lightheadedness, syncope, pre-syncope or orthopnea Resp: Reports: dyspnea (feels like she cannot take a deep breath), productive cough, change in phlegm color and chest congestion; Denies: wheezing, stridor, pain on inspiration or hemoptysis GI: Denies: abdominal pain, nausea, vomiting or diarrhea : Reports: pelvic pain (cramping-only after long periods of coughing; resolves after coughing stops); Denies: flank pain, difficulty voiding, dysuria, urinary frequency, urinary urgency or urinary hesitancy Musc: Denies: neck pain, back pain, extremity pain or joint pain Skin/Breast: Denies: rash Neuro: Denies: headache(s), numbness in extremities, weakness in extremities, sensory changes or dizziness PFS ED PFSH: Medical History Fibroadenoma of right breast No pertinent past medical history neghx: htn,dm,thyroid,dvt/pe PCP: [facility] depression Surgical History History of appendectomy History of dental surgery (~2014) Part of my left jaw was removed History of right breast biopsy removed fibroadenoma Family History Other Adopted Physical Exam Const: COMMON NORMALS: no acute distress, average body habitus, patient oriented x3, no limitations, healthy appearing, alert and well nourished HENMT: COMMON NORMALS: normocephalic, atraumatic, EAC's normal, TM's normal bilaterally, Normal nasal mucous membranes and turbinates present, moist oral mucous membranes and oropharynx normal HEAD & SCALP: normal to inspection, normocephalic and atraumatic FACE & SINUS: normal facial exam NOSE: Normal nasal mucous membranes and turbinates present EXTERNAL AUDITORY CANAL: EAC's normal TYMPANIC MEMBRANE: TM's normal bilaterally Eye: COMMON NORMALS: Equal, round and reactive pupils present and EOMs intact bilaterally GENERAL EYE: appearance normal, both eyes and all related structures and normal light reflex PUPIL: Yes Equal, round and reactive pupils present DIRECT OPHTHALMOSCOPY: Yes normal light reflex Neck/C-Spine: COMMON NORMALS: full ROM and no lymphadenopathy GENERAL: Yes normal visual inspection Chest: COMMONS NORMALS: normal inspection of the chest and normal palpation of entire chest wall Resp: COMMON NORMALS: normal respiratory effort and clear to auscultation bilaterally AUSCULTATION: clear to auscultation bilaterally Cardio: COMMON NORMALS: regular rate and regular rhythm RATE: regular rate RHYTHM: regular rhythm GI: COMMON NORMALS: Normal to inspection, nondistended, normoactive bowel sounds present, Soft to palpation and non-tender INSPECTION: Yes normal to inspection and Yes gravid abdomen PALPATION: Yes Soft to palpation : COMMON NORMALS: Yes no CVA tenderness BLADDER/KIDNEY EXAM: Yes no CVA tenderness Back/Pelvis: COMMON NORMALS: no CVA tenderness, thoracic and lumbar spine normal to inspection and no thoracic nor lumbar tenderness Extremity: COMMON NORMALS: normal to inspection, capillary refill normal, no joint enlargement, no clubbing, cyanosis or edema, no calf tenderness and no pedal edema GENERAL: Yes normal exam except as noted Neuro: COMMON NORMALS: patient oriented x3, moves all extremities, no focal motor deficits and no sensory deficits noted SENSORIUM/ORIENTATION: Yes alert Skin: COMMON NORMALS: no rashes or lesions noted GENERAL SKIN EXAM: no rashes or lesions noted Course Vital Signs: Vital signs: Vital Signs Temperature 98.2 F 07/16/23 10:26 Pulse Rate 119 H 07/16/23 11:03 Respiratory Rate 16 07/16/23 11:03 Blood Pressure 106/70 07/16/23 11:03 Pulse Oximetry 98 07/16/23 11:03 Oxygen Delivery Me thod Room Air 07/16/23 11:03 MDM - URI/Sore Throat Medical Decision Making CXR normal. Respiratory panel collected/pending. Appears in no acute distress. Discussed conservative treatments she can do while including honey, elderberry syrup, humidifier/essential oil, as well as OTC guaifenesin and dextromethorphan. Return ED precautions given. All radiology interpretation(s) finalized by discharge Discharge Plan Discharge Patient Disposition: Home Clinical Impression: Bronchitis Condition: Stable Prescriptions: No Action 28-800 mg-mcg Tablet 1 tab PO DAILY Discharge Orders: Discharge ED (Routine); Ordered 07/16/23 Ordered By: Carolyn Simon Referrals: Gladys Talbot MD [Primary Care Provider] - Patient Instructions: Bronchitis (Acute) - Adult, Acute Bronchitis (ED) Activity Restrictions/Additional Instructions: When treatment for cough is needed during , guaifenesin and dextromethorphan at standard OTC doses is generally considered acceptable. Products containing alcohol should be avoided. As we discussed I will contact you later today IF anything on your respiratory panel comes back positive. Please follow up with your OB/PCP provider next week for re-evaluation. You need to return to the emergency department/OB began h aving severe abdominal cramping, vaginal bleeding, leaking of fluids, of your pain, or any other concerns you may have. 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
--- NOTE | 2023-07-16 10:38 | XR_ITS ---
WS: [id number] EXAMINATION: XR chest 1V portable [id number] REASON FOR EXAM: cough; SHIELD PREG COMPARISON: 08/18/2021 ORDER DATE: 07/16/2023 10:40 AM TECHNIQUE: A single, portable frontal chest x-ray was obtained. X-RAY FINDINGS: The lungs are clear. Pleural spaces are clear. No pleural effusions or pneumothorax. Cardiomediastinal silhouette is normal. No evidence for pulmonary edema. Soft tissue and osseous structures are unremarkable. No tubes or lines are present. IMPRESSION: Unremarkable frontal portable chest x-ray.
[2023-07-16 11:03] VITALS: BP 106/70; PULSE 119; RESP 16; O2SAT 98
[2023-07-16 11:28] VITALS: BP 106/70; PULSE 119; RESP 16; O2SAT 98
[2023-07-16 14:40] LABS: Adenovirus Not Detected (NOT DETECT); Chlamydia Pneumoniae Not Detected (NOT DETECT); Coronavirus 229E,HKU1,NL63,OC4 Not Detected (NOT DETECT); Human Metapneumovirus Not Detected (NOT DETECT); Human Rhinovirus/Enterovirus Not Detected (NOT DETECT); Influenza A Not Detected (NOT DETECT); Influenza A H1 Not Detected (NOT DETECT); Influenza A H1-2009 Not Detected (NOT DETECT); Influenza A H3 Not Detected (NOT DETECT); Influenza B Not Detected (NOT DETECT); Mycoplasma Pneumoniae Not Detected (NOT DETECT); Parainfluenza Virus Type 1 Not Detected (NOT DETECT); Parainfluenza Virus Type 2 Not Detected (NOT DETECT); Parainfluenza Virus Type 3 Not Detected (NOT DETECT); Parainfluenza Virus Type 4 Not Detected (NOT DETECT); Respiratory Syncytial Virus A Not Detected (NOT DETECT); Respiratory Syncytial Virus B Not Detected (NOT DETECT); SARS-COV-2 Not Detected (NOT DETECT)
== END 2023-07-16 11:29 | disposition home or self-care (01) ==
PROVIDERS: Emergency Provider Physician Assistant; PCP Family Medicine
DX: J40 Bronchitis, not specified as acute or chronic (principal)
CPT/HCPCS: 71045; 87486; 87581; 87633; 99284

== ENCOUNTER 2023-07-27 16:51 | Outpatient (CLI) | payer MEDICAID, SELFPAY ==
--- NOTE | 2023-07-27 17:15 | XRR_ITS ---
PROCEDURE INFORMATION: Exam: XR Chest Exam date and time: 07/27/2023 5:17 PM Age: 23 years old Clinical indication: Cough; Prior surgery; Surgery date: 6+ months; Surgery type: Tumor removal right lung TECHNIQUE: Imaging protocol: Radiologic exam of the chest. Views: 2 views. COMPARISON: CR XR chest 1V portable [id number] 07/16/2023 10:46 AM FINDINGS: Lungs: Unremarkable. No consolidation. Pleural spaces: Unremarkable. No pleural effusion. No pneumothorax. Heart/Mediastinum: Unremarkable. No cardiomegaly. Bones/joints: There is a levoconvex curvature of the thoracic spine. XR/XR chest 2V* [id number] IMPRESSION: No acute cardiopulmonary disease.
== END 2023-07-27 16:52 | disposition home or self-care (01) ==
PROVIDERS: PCP Family Medicine; Visit Provider Family Medicine
DX: R05.9 Cough, unspecified (principal)
CPT/HCPCS: 71046

== ENCOUNTER 2023-08-10 15:35 | Outpatient (CLI) | payer MEDICAID, SELFPAY ==
[2023-08-10] VITALS (15 sets, daily range): BP systolic 105–132; BP diastolic 54–72; PULSE 58–82; RESP 17; TEMP 36.6
[2023-08-10 16:04] LABS: Nitrazine Paper, PH Negative
[2023-08-10 17:34] LABS: Bilirubin Urine Neg (Negative); Blood Urine Neg (Negative); Glucose Urine UA Norm (Normal); Ketones Urine Negative (Negative); Leukocyte Esterase Urine 2+ (Negative); Nitrate Urine Positive (Negative); Protein Urine Neg (Negative); Urine Appearance Hazy (CLEAR); Urine Color Straw (Yellow); Urobilinogen Urine Norm (Negative); pH Urine 8 (5-7)
[2023-08-10 17:35] LABS: Add Urine Culture? No; Amorphous Sediment Urine 1+ /hpf; Bacteria Urine 2+ /hpf
--- NOTE | 2023-08-10 17:48 | USR_ITS ---
PROCEDURE INFORMATION: Exam: US , Limited Exam date and time: 08/10/2023 6:16 PM Age: 23 years old Clinical indication: complicated by abdominal or pelvic pain; Other: Pre-term labor, no vaginal bleeding; Gestational age or lmp: 29w 6d; ; Patient HX: Pre-term labor today, no vaginal bleeding; Additional info: Contractions, please check cervical length LABS AND CLINICAL REPORTS: Last menstrual period start date: 01/13/2023 Gestational age (Established): 29 w 6 d Estimated due date (Established): 10/20/2023 TECHNIQUE: Imaging protocol: Real-time ultrasound of the maternal uterus with image documentation. Exam focused on the clinical indication. COMPARISON: US OB >= 14 weeks fetus [id number] 05/29/2023 11:18 AM FINDINGS: Gestation: Single live intrauterine . heart rate: 147 bpm presentation: Cephalic Placenta: Anterior grade 1 placenta [without previa. Amniotic fluid index: LOC is 19.26 cm. BIOMETRY: Gestational age (AUA): 29 w 6 d Estimated due date (AUA): 10/20/2023 MATERNAL: Cervix: Cervical length measures 3.5 cm. Cervix closed and normal and length measuring 4.9 cm. US/US OB limited [id number] IMPRESSION: 1. Single live intrauterine . 2. Cervix closed and normal and length measuring 4.9 cm.
[2023-08-10] MEDS: acetaminophen 500 mg Tablet 1000 MG PO (17:57)
[2023-08-10] MEDS: amoxicillin-clav 875-125 mg Tablet 1 TAB PO (17:57)
[2023-08-11 10:00] LABS: Amphetamines Screen Urine Negative (Negative); Barbiturates Screen Urine Negative (Negative); Benzodiazepines Screen Urine Negative (Negative); Cocaine Screen Urine Negative (Negative); Opiate Screen Urine Negative (Negative); PCP Screen Urine Negative (Negative); THC Screen Urine Negative (Negative)
== END 2023-08-10 19:18 | disposition home or self-care (01) ==
LOC: OPOB 15:40 → OBGYN 15:41
PROVIDERS: PCP Family Medicine; Visit Provider Family Medicine
DX: O26.899 Other specified pregnancy related conditions, unspecified trimester (principal); Z3A.00 Weeks of gestation of pregnancy not specified; R10.9 Unspecified abdominal pain
CPT/HCPCS: 59025; 76815; 80306; 81001; 83986; 99211

== ENCOUNTER 2023-09-25 09:39 | Outpatient (CLI) | payer MEDICAID, SELFPAY ==
--- NOTE | 2023-09-25 09:41 | US_ITS ---
WS: [id number] Exam: US soft tissue/extremity [id number] Date/Time of Exam: 09/25/2023 9:49 AM Reason For Exam: RIGHT AXILLA LYMPHADENOPATHY The RIGHT axilla is targeted for ultrasound evaluation. A single lymph node is noted in the RIGHT axilla that measures 1.25 x 1.52 x .83 cm This does not quiros ve suspicious appearance. There is no mass or abnormal soft tissue fluid collection in the RIGHT axil la. There were no other abnormal findings. IMPRESSION: 1. Single lymph node in the RIGHT axilla measuring less than 1 cm in short axis dimension. This does not have suspicious appearance. 2. No other significant finding in the RIGHT axilla.
== END 2023-09-25 09:40 | disposition home or self-care (01) ==
LOC: RAD 09:39
PROVIDERS: PCP Family Medicine; Visit Provider Family Medicine
DX: R59.0 Localized enlarged lymph nodes (principal)
CPT/HCPCS: 76882

== ENCOUNTER 2023-10-14 08:14 | Inpatient (IN) | payer MEDICAID, SELFPAY ==
[2023-10-14] VITALS (77 sets, daily range): BP systolic 82–164; BP diastolic 48–74; PULSE 57–130; RESP 16–17; O2SAT 99–100; BMI 28.5
[2023-10-14 09:07] LABS: Basophils % 0.5 %; Eosinophils # 0.1 10^3/uL (0.0-0.8); Eosinophils % 0.7 %; Hematocrit 31.8 % (36-47); Lymphocytes # 1.7 10^3/uL (0.8-4.8); Lymphocytes % 20.2 %; Mean Corpuscular HGB Conc 30.8 g/dL (30-55); Mean Corpuscular Hemoglobin 22.9 pg (27-33); Mean Corpuscular Volume 74.3 fl (85-98); Mean Platelet Volume 10.9 fL (7.4-10.4); Monocytes # 0.7 10^3/uL (0.2-0.9); Monocytes % 8.3 %; Neutrophils # 5.94 10^3/uL (1.8-7.7); Neutrophils % 69.6 %; Nucleated Red Blood Cells % 0 %; Platelet Count 242 10^3/cmm (157-399); Red Blood Count 4.28 10^6/uL (3.85-5.65); Red Cell Distribution Width 17.2 % (12.1-15.1); White Blood Count 8.53 10^3/uL (3.29-11.43)
[2023-10-14] MEDS: oxytocin 30 UNIT/500 ML BAG IV (09:38)
[2023-10-14] MEDS: dextrose 5%-lactated ringers 1,000 ML 125 ML IV ×2 (09:39→19:55)
[2023-10-14] MEDS: ROPivacaine syringe 100 MG/50 ML SYRINGE 10 MG EPIDURAL ×2 (11:53→16:14)
--- NOTE | 2023-10-14 11:56 | ANES.PREANE2 ---
Pre-Anesthetic Assessment Height/Weight: Height 1.6 m Weight 73.028 kg Pulse Resp BP Pulse Ox O2 Del Method 101 H 17 113/62 100 Room Air 10/14/23 11:52 10/14/23 08:15 10/14/23 11:52 10/14/23 11:52 10/14/23 10:05 Preop Diagnosis: IUP Labor epidural Familial anesthetic complications: None Was Beta Robert taken within 24 hours: N/A Was Clonidine taken within 24 hours: N/A Last intake: 10/14/23 @0800 Social No alcohol and No tobacco Exam alert, oriented x 3 and clear to auscultation bilaterally Airway Mallampati: Class II Dentition: full History/ROS No significant history except as noted Pulmonary None reported CV/HEM Anemia None reported GI Gastroesophageal Reflux Disease Metabolic None reported Musc/skel None reported Neuropsych None reported Anesthetic Plan ASA status: 2 Anesthesia: Anesthesia Evaluation and Regional (specify below) Risk of > 500 ml blood loss (7ml/kg in children): No Medications/Allergies Home Medications Medication Instructions Recorded Confirmed Last Taken Type vit no.133-ferrous 1 tab PO DAILY 07/16/23 07/16/23 07/15/23 History fumarate 28 mg-folic acid 800 mcg tablet () Allergies Allergy/AdvReac Type Severity Reaction Status Date / Time No Known Allergies Allergy Verified 07/16/23 10:31 Current Medications Generic Name Dose Route Start Last Admin Trade Name Fritzq PRN Reason Stop Dose Admin Dextrose/Lactated Ringer's 1,000 mls @ 125 mls/hr 10/14/23 09:00 10/14/23 09:39 Dextrose 5%-Lactated Ringers IV 125 mls/hr .Q8H LEDA Administration Oxytocin 30 unit in 500 mls @ 1 mls/hr 10/14/23 09:15 10/14/23 09:38 Pitocin IV 1 milliunit/min .Q24H LEDA 1 mls/hr Administration Protocol 1 MILLIUNIT/MIN Ropivacaine 100 mg in 50 mls @ 10 mls/hr 10/14/23 11:00 10/14/23 11:53 Naropin Syringe EPIDURAL 10 mls/hr .Q5H LEDA Administration PFSH Anesthesia Medical History Fibroadenoma of right breast No pertinent past medical history neghx: htn,dm,thyroid,dvt/pe PCP: [facility] depression Surgical History History of appendectomy History of dental surgery (~2014) Part of my left jaw was removed History of right breast biopsy removed fibroadenoma Family History Other Adopted Data Anesthesia 10/14/23 08:40 Short CBC 10/14/23 Range/Units 08:40 WBC 8.53 (3.29-11.43) 10^3/uL Hgb 9.80 L (11.27-16.99) g/dL Hct 31.8 L (36-47) % MCV 74.3 L (85-98) fl Plt Count 242 (157-399) 10^3/cmm Neut % (Auto) 69.6 % Neut # (Auto) 5.94 (1.8-7.7) 10^3/uL Cardiac Studies: No Data to Display Anesthesia Procedures Epidural Time Out Performed: Yes Consents Signed: Procedure Consent Consent: requested by attending/covering physician, from patient, risks and benefits reviewed and patient agrees to proceed Lumbar Level: L4-L5 Epidural position: sitting Epidural procedure: sterile prep of area, 1% lidocaine to numb the area, 18 g needle, negative for paresthesia passed, neg for paresthesia, test dose given, 1.5% xylocaine 1:200k epi, 0.2% Ropivacaine bolus ml, placed PCEA, no systemic response, sterile dressing applied, L.U.D. no apparent complications and 0.2% Ropiavacaine @ mls/hr (10) Additional Comments: WARREN 6cm, catheter easily threaded to 5cm in the space. Pt reports decreased pain with contractions. 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
--- NOTE | 2023-10-14 12:15 | PM.OBGYHP ---
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 course complicated by anemia-she is on iron supplementation. Trichomonas infection treated with negative COREY. UTI treated. Denies cramping/contractions, LOF, vaginal bleeding prior to admission Good movement. care was good and starting in first trimester- she did transfer care in middle of to my office. Appears initial UDS positive for opiates with her initial care- negative on repeat later in and patient denies any regular opiate use. Labs Blood type OB HPI: A (+) positive Rubella: Immune RPR: Negative GBS: Negative HBsAG: Negative Other Lab Information: Hepatitis C ab negative HIV negative Initial H/H12.2/38.2 Urine culture positive for E. coli?treated with cephalexin Trichomonas positive treated with negative COREY Gonorrhea chlamydia negative Pap smear 12/05/2022 NILM Medications/Allergies Home Medications Medication Instructions Recorded Confirmed Last Taken Type vit no.133-ferrous 1 tab PO DAILY 07/16/23 07/16/23 07/15/23 History fumarate 28 mg-folic acid 800 mcg tablet () Allergies Allergy/AdvReac Type Severity Reaction Status Date / Time No Known Allergies Allergy Verified 07/16/23 10:31 PFSH [employer]SULTANT PFSH: Medical History Fibroadenoma of right breast No pertinent past medical history neghx: htn,dm,thyroid,dvt/pe PCP: Dah[facility] depression Surgical History History of appendectomy History of dental surgery (~2014) Part of my left jaw was removed History of right breast biopsy removed fibroadenoma Family History Other Adopted Other Female Reproductive History: Hx Age of Menarche: 12 History History History 3 Term 2 0 Miscarriages/Ectopic 0 Living Children 2 Care JANNETTE Calculator Estimated Delivery Date Method Current WG Current Estimate 10/21/23 LMP (Certain) 39w 0d Other Estimates 10/20/23 Ultrasound #1 39w 1d Specific Issues/Plans Trichomonas--treated with Flagyl First trimester UTI--started Keflex 03/20/2023 Vitals/I&O/Wt Last Vital Signs Pulse 77 10/14/23 12:40 Resp 17 10/14/23 08:15 BP 106/56 10/14/23 12:40 Pulse Ox 100 10/14/23 12:37 O2 Del Method Room Air 10/14/23 10:05 Weight last 48 hrs Weight 161 lb Physical Exam Const: COMMON NORMALS: no acute distress, patient oriented x3, healthy appearing and alert Resp: COMMON NORMALS: normal respiratory effort and clear to auscultation bilaterally Cardio: COMMON NORMALS: regular rate, regular rhythm, S1 normal heart sound present, S2 normal heart sound present and No murmurs present (Cardio) Extremity: NARRATIVE EXTREMITY EXAM: No LE edema Psych: COMMON NORMALS: normal affect and speech normal Data 10/14/23 08:40 Results Labs OB ([facility]): Obstetrics US 08/10/23 Blood Type A Positive 04/10/23 Antibody Screen Negative 04/10/23 Hct 31.8 % (36-47) L 10/14/23 Hgb 9.80 g/dL (11.27-16.99) L 10/14/23 Rho(D) Type Positive 04/10/23 Plt Count 242 10^3/cmm (157-399) 10/14/23 Hep Bs Antigen Non-reactive (Nonreactive) 04/10/23 Hepatitis C Antibody Non-reactive (Nonreactive) 04/10/23 Rubella IgG Antibody 52.5 IU/mL (0.0-10.0) H 04/10/23 RPR Nonreactive (Nonreactive) 04/10/23 HIV 1&2 Ab & HIV 1 Ag Non-reactive (Non-Reactiv) 04/10/23 C.trachomatis RNA (TMA) Not detected (NOT DETECTED) 04/24/23 N.gonorrhoeae RNA (TMA) Not detected (NOT DETECTED) 04/24/23 T. vaginalis Amp RNA Not detected (NOT DETECTED) 04/24/23 Chlamydia/GC Comment See note 04/24/23 Cystic Fibrosis Screen Negative 04/10/23 Ser , Semi-Qnt 1.00 mIU/mL 01/14/23 HCG, Qual Positive (Negative) H 05/13/23 Urine Opiates Screen Negative ng/mL (Negative) 08/10/23 Ur Barbiturates Screen Negative ng/mL (Negative) 08/10/23 Ur Phencyclidine Scrn Negative ng/mL (Negative) 08/10/23 Ur Amphetamines Screen Negative ng/mL (Negative) 08/10/23 U Benzodiazepines Scrn Negative ng/mL (Negative) 08/10/23 Urine Cocaine Screen Negative ng/mL (Negative) 08/10/23 U Marijuana (THC) Screen Negative ng/mL (Negative) 08/10/23 Micro Urine Specimen 03/27/23 Pap Smear Interpret See note 12/05/22 A&P Assessment and plan (1) Elective induction of labor planned: (2) Term : Plan 23yo at 39w0d presenting for elective induction of labor. On admission with SVE /-3, plan for low-dose pitocin for induction May have epidural when desired Routine CBC Continuous EFM- currently Category I FHT Attestations Medical Necessity Statement*: Jackelin Avelar's hospital stay will require greater than 2 midnights for routine labor and delivery and care. Coding Level of Care Code Acute Code for Chg Fwd Diagnoses Elective induction of labor planned Term Z34.90
[2023-10-14] MEDS: hyDROXYzine 25 mg Capsule 50 MG PO (14:22)
[2023-10-14] MEDS: ondansetron 2 mg/ML SDV 2 mL 4 MG IVP (14:58)
[2023-10-14] MEDS: oxytocin 30 UNIT/500 ML BAG 600 UNIT IV (19:57)
--- NOTE | 2023-10-14 20:03 | P.PCNOB_ITS ---
Delivery Note: Date of delivery: October 14, 2023 Pre-delivery diagnoses: Term Anemia Post-delivery diagnoses: Delivery of viable male Procedure: Spontaneous Vaginal Delivery Delivering Physician: Alessandra Mclain DO Estimated blood loss (mL): 150 Pre-Delivery Course: Admitted for elective induction of labor at 39 weeks 0 days with initial SVE 4/40/-3. She was initiated on low-dose Pitocin and contractions gradually increased. Patient received epidural with SVE approximately 5/75/-3. Spontaneous rupture membranes at approximately 1800 with clear fluid. She subsequently progressed to complete appropriately. Delivery: Patient progressed to complete. Patient placed in lithotomy position. Patient pushed with adequate effort. Head delivered in OA position, loose nuchal cord was present and reduced. Shoulders and rest of body delivered without difficulty with adequate epidural anesthesia. Noted to have meconium stained fluid at delivery. Mouth and nares bulb suctioned. placed on maternal abdomen. Cord clamped and cut by stated father of baby after 1 minute delay. Placenta spontaneously delivered spontaneously and intact. Pitocin started. Fundus was noted to be firm. The vagina and cervix were inspected and no lacerations were noted. 1 right periurethral abrasion was noted. Fundus was again noted to be firm. Male born at 1951 on 10/14/2025 at 39 weeks 0 days with Apgars 9/9 weighing 8 pounds 3 ounces and measuring 21-3/4 inches in length 14 inches in head circumference, 15 inches chest circumference Placenta noted to be intact with centrally inserted umbilical cord and three- vessel cord. Complications: Maternal none Infant none History History History 3 Term 2 0 Miscarriages/Ectopic 0 Living Children 2 A&P Assessment and plan (1) Spontaneous vaginal delivery: (2) Anemia: Coding Level of Care Code Acute Code for Chg Fwd Diagnoses Spontaneous vaginal delivery O80 Anemia D64.9
[2023-10-14] MEDS: ibuprofen 800 mg tablet PO (22:45)
[2023-10-14] MEDS: benzocaine-menthol 78 gm Canister 1 SPRAY TOPICAL (22:46)
[2023-10-15] VITALS (7 sets, daily range): BP systolic 99–127; BP diastolic 59–81; PULSE 58–74; RESP 16; TEMP 36.7–37.5; O2SAT 97–98
[2023-10-15] MEDS: lanolin oint 7 gm 1 APPLIC TOPICAL (01:55)
[2023-10-15] MEDS: acetaminophen 325 mg Tablet 650 MG PO (01:55)
--- NOTE | 2023-10-15 09:17 | ANE.PACU2 ---
Inpatient post-anesthesia follow up: Airway intact: Yes Vital signs: Temperature 98.5 F Pulse Rate 66 Respiratory Rate 16 Blood Pressure 104/63 Pulse Oximetry 100 Oxygen Delivery Me thod Room Air Oxygen Flow Rate Fraction of Inspir ed Oxygen Hydration adequate: Yes Nausea and vomiting: No Pain level: 2 Mental status: Baseline Epidural Start/End: Epidural Start Date: 10/14/23 Epidural Start Time: 11:29 Epidural End Date: 10/14/23 Epidural End Time: 20:03
[2023-10-15] MEDS: docusate sodium 100 mg Capsule PO (09:24)
[2023-10-15] MEDS: ibuprofen 800 mg tablet PO ×2 (09:24→15:33)
[2023-10-15] MEDS: prenatal vitamin Capsule 1 CAP PO (09:24)
[2023-10-15 09:42] LABS: Hematocrit 27.8 % (36-47); Mean Corpuscular HGB Conc 31.3 g/dL (30-55); Mean Corpuscular Hemoglobin 23.3 pg (27-33); Mean Corpuscular Volume 74.3 fl (85-98); Mean Platelet Volume 10.3 fL (7.4-10.4); Platelet Count 217 10^3/cmm (157-399); Red Blood Count 3.74 10^6/uL (3.85-5.65); Red Cell Distribution Width 17.2 % (12.1-15.1); White Blood Count 11.31 10^3/uL (3.29-11.43)
[2023-10-15] MEDS: ferrous sulfate EC 325 mg Tablet PO (11:12)
--- NOTE | 2023-10-15 11:30 | PM.OBGYDC ---
Discharge Providers PATIENT INSURANCE CLERK Date of Admission: 10/14/23 08:14 Date of Discharge: 10/15/23 Attending Provider at Admission: Alessandra Mclain DO Attending Provider at Discharge: Alessandra Mclain DO Primary Care Provider: Gladys Talbot MD Diagnoses at Discharge Discharge Diagnosis (1) Spontaneous vaginal delivery: Status: Acute (2) Anemia: Status: Acute Reason for Visit Reason for Visit: Induction of Labor Hospital Course Hospital Course Pre-Delivery Course: Admitted for elective induction of labor at 39 weeks 0 days with initial SVE 4/40/-3. She was initiated on low-dose Pitocin and contractions gradually increased. Patient received epidural with SVE approximately 5/75/-3. Spontaneous rupture membranes at approximately 1800 with clear fluid. She subsequently progressed to complete appropriately. Delivery: Patient progressed to complete. Patient placed in lithotomy position. Patient pushed with adequate effort. Head delivered in OA position, loose nuchal cord was present and reduced. Shoulders and rest of body delivered without difficulty with adequate epidural anesthesia. Noted to have meconium stained fluid at delivery. Mouth and nares bulb suctioned. placed on maternal abdomen. Cord clamped and cut by stated father of baby after 1 minute delay. Placenta spontaneously delivered spontaneously and intact. Pitocin started. Fundus was noted to be firm. The vagina and cervix were inspected and no lacerations were noted. 1 right periurethral abrasion was noted. Fundus was again noted to be firm. Male born at 1951 on 10/14/2025 at 39 weeks 0 days with Apgars 9/9 weighing 8 pounds 3 ounces and measuring 21-3/4 inches in length 14 inches in head circumference, 15 inches chest circumference Placenta noted to be intact with centrally inserted umbilical cord and three-vessel cord. Complications: Maternal none none Patient underwent on 10/14/23. course was uncomplicated. Following delivery patient ambulated well, tolerated a normal diet without nausea or vomiting. Pain was well controlled on PO medications, well, no leg/calf pain, no calf/leg swelling, normal urination, passing gas and normal bowel movements. Vaginal bleeding thin lochia and decreasing. labs significant for hemoglobin 8.7 from 9.8 on admission. Follow-up planned for 2 and 6 weeks . Warning signs for endometritis, pre-eclampsia, DVT/PE, mastitis were reviewed, discussed additional warning signs including increased vaginal bleeding, worsening abdominal pain. Pelvic rest and activity precautions reviewed as well. She is discharged on 10/15/23. in stable condition. Information Peripartum Data: Infant Delivery Method: Vaginal Physical Exam Const: COMMON NORMALS: no acute distress, patient oriented x3, healthy appearing and alert Resp: COMMON NORMALS: normal respiratory effort and clear to auscultation bilaterally AUSCULTATION: clear to auscultation bilaterally Cardio: COMMON NORMALS: regular rate, regular rhythm, S1 normal heart sound present, S2 normal heart sound present and No murmurs present (Cardio) RATE: regular rate RHYTHM: regular rhythm HEART SOUNDS: S1 normal heart sound present and S2 normal heart sound present : OTHER: uterine fundus firm at the umbilicus Extremity: NARRATIVE EXTREMITY EXAM: No LE edema Neuro: COMMON NORMALS: patient oriented x3 SENSORIUM/ORIENTATION: Yes alert Psych: COMMON NORMALS: normal affect and speech normal SPEECH: Yes normal speech Urinary Catheter Management: Gu: Cath Placed During This Visit: yes, but has since been removed by the nurse Reason for Continuing Indwelling Catheter: Decision to DC Catheter Urinary Catheter Date of Insertion: 10/14/23 Urinary Catheter Time of Insertion: 13:20 Date Urinary Catheter Removed: 10/14/23 Time Urinary Catheter Discontinued: 19:40 History History History 3 Term 2 0 Miscarriages/Ectopic 0 Living Children 2 Discharge Data Studies Completed and Pending Laboratory Results WBC 11.31 10^3/uL (3.29-11.43) 10/15/23 09:35 RBC 3.74 10^6/uL (3.85-5.65) L 10/15/23 09:35 Hgb 8.70 g/dL (11.27-16.99) L 10/15/23 09:35 Hct 27.8 % (36-47) L 10/15/23 09:35 MCV 74.3 fl (85-98) L 10/15/23 09:35 MCH 23.3 pg (27-33) L 10/15/23 09:35 MCHC 31.3 g/dL (30-55) 10/15/23 09:35 RDW 17.2 % (12.1-15.1) H 10/15/23 09:35 Plt Count 217 10^3/cmm (157-399) 10/15/23 09:35 MPV 10.3 fL (7.4-10.4) 10/15/23 09:35 Neut % (Auto) 69.6 % 10/14/23 08:40 Lymph % (Auto) 20.2 % 10/14/23 08:40 Dickson % (Auto) 8.3 % 10/14/23 08:40 Eos % (Auto) 0.7 % 10/14/23 08:40 Baso % (Auto) 0.5 % 10/14/23 08:40 Neut # (Auto) 5.94 10^3/uL (1.8-7.7) 10/14/23 08:40 Lymph # (Auto) 1.7 10^3/uL (0.8-4.8) 10/14/23 08:40 Dickson # (Auto) 0.7 10^3/uL (0.2-0.9) 10/14/23 08:40 Eos # (Auto) 0.1 10^3/uL (0.0-0.8) 10/14/23 08:40 Baso # (Auto) 0.0 10^3/uL (0.0-0.1) 10/14/23 08:40 Nucleated RBC % (auto) 0 % 10/14/23 08:40 Nucleated RBCs # 0.0 /100WBC 10/14/23 08:40 Blood Type A Positive 10/14/23 08:40 Rho(D) Type Rh positive 10/14/23 08:40 Antibody Screen Negative 10/14/23 08:40 Vitals Last Vital Signs Temp 98.3 F 10/15/23 10:24 Pulse 58 L 10/15/23 10:24 Resp 16 10/15/23 03:34 BP 99/63 10/15/23 10:24 Pulse Ox 97 10/15/23 10:24 O2 Del Method Room Air 10/15/23 10:24 Results Labs OB ([facility]): Obstetrics US 08/10/23 Blood Type A Positive 10/14/23 Antibody Screen Negative 10/14/23 Hct 27.8 % (36-47) L 10/15/23 Hgb 8.70 g/dL (11.27-16.99) L 10/15/23 Rho(D) Type Rh positive 10/14/23 Plt Count 217 10^3/cmm (157-399) 10/15/23 Hep Bs Antigen Non-reactive (Nonreactive) 04/10/23 Hepatitis C Antibody Non-reactive (Nonreactive) 04/10/23 Rubella IgG Antibody 52.5 IU/mL (0.0-10.0) H 04/10/23 RPR Nonreactive (Nonreactive) 04/10/23 HIV 1&2 Ab & HIV 1 Ag Non-reactive (Non-Reactiv) 04/10/23 C.trachomatis RNA (TMA) Not detected (NOT DETECTED) 04/24/23 N.gonorrhoeae RNA (TMA) Not detected (NOT DETECTED) 04/24/23 T. vaginalis Amp RNA Not detected (NOT DETECTED) 04/24/23 Chlamydia/GC Comment See note 04/24/23 Cystic Fibrosis Screen Negative 04/10/23 Ser , Semi-Qnt 1.00 mIU/mL 01/14/23 HCG, Qual Positive (Negative) H 05/13/23 Urine Opiates Screen Negative ng/mL (Negative) 08/10/23 Ur Barbiturates Screen Negative ng/mL (Negative) 08/10/23 Ur Phencyclidine Scrn Negative ng/mL (Negative) 08/10/23 Ur Amphetamines Screen Negative ng/mL (Negative) 08/10/23 U Benzodiazepines Scrn Negative ng/mL (Negative) 08/10/23 Urine Cocaine Screen Negative ng/mL (Negative) 08/10/23 U Marijuana (THC) Screen Negative ng/mL (Negative) 08/10/23 Micro Urine Specimen 03/27/23 Pap Smear Interpret See note 12/05/22 Discharge Plan Discharge Patient Disposition: Home Condition: Stable Prescriptions: New ibuprofen 800 mg Tablet 800 mg PO TID Qty: 90 0RF docusate sodium 100 mg Capsule 100 mg PO BID Qty: 90 0RF ferrous sulfate 325 mg (65 mg iron) Tablet,Delayed Release (Dr/Ec) 325 mg PO DAILY Qty: 90 0RF Continued 28-800 mg-mcg Tablet 1 tab PO DAILY Discharge Orders: Discharge Order (Routine); Ordered 10/15/23 Ordered By: Alessandra Mclain Referrals: Alessandar Mclain, DO [Physician] - 2 weeks (* Please call Dr. Mclain's office first thing in the morning to make your 2 week and 6 week appointment) Discharge Diet: Regular Discharge Activity: Increase activity as tolerated Patient Instructions: Depression (DC), Preeclampsia and Eclampsia After Delivery (GEN), Hemorrhage (DC), OB Discharge Report, OB Food/Drug Interaction Guide, OB Care at Home, Opioid Safety, OB Vaginal Deliveries, Abnormal Bleeding Activity Restrictions/Additional Instructions: Pelvic rest for 6 weeks. Follow-up with Dr. Mclain at 2 and 6 weeks . Discharge Attestations PATIENT INSURANCE CLERK Time Spent in Discharge Care*: greater than 30 min Coding Level of Care Code Acute Code for Chg Fwd Diagnoses Spontaneous vaginal delivery O80 Anemia D64.9
== END 2023-10-15 21:58 | disposition home or self-care (01) | DRG 807 ==
LOC: OBGYN 15:19 → OPOB 10-15 05:35 → OBGYN 10-15 05:35
PROVIDERS: Admitting Provider Family Medicine; PCP Family Medicine; Visit Provider Family Medicine
DX: O99.02 Anemia complicating childbirth (principal); Z37.0 Single live birth; D64.9 Anemia, unspecified; Z3A.39 39 weeks gestation of pregnancy; O69.81X0 Labor and delivery complicated by cord around neck, without compression, not applicable or unspecified; O77.0 Labor and delivery complicated by meconium in amniotic fluid; O71.82 Other specified trauma to perineum and vulva
CPT/HCPCS: 36415; 51702; 59025; 59409; 85025; 85027; 86850; 86900; 96374; J2405; J2590; J2795; J7121